=== PATIENT | female | born 1985 | race Caucasian/White ===

== ENCOUNTER 2016-10-24 15:57 | Outpatient (CLI) | payer MEDICAID ==
[2016-10-24 16:31] LABS: ABSOLUTE EOSINOPHILS # (AUTO) 0.1 10^3/uL (0.0-0.6); ABSOLUTE LYMPHOCYTES (AUTO) 2.3 10^3/uL (0.5-4.7); ABSOLUTE MONOCYTES (AUTO) 0.8 10^3/uL (0.1-1.4); ABSOLUTE NEUT (AUTO) 7.6 10^3/uL (1.7-8.2); BASOPHILS % (AUTO) 0.4 % (0-2); EOSINOPHILS % (AUTO) 1.3 % (0-6); HEMATOCRIT 33.2 % (36.0-47.0); HEMOGLOBIN 11.2 g/dL (12.0-15.5); HGB HCT DIFFERENCE 0.4; LYMPHOCYTES % (AUTO) 21.2 % (13-45); MEAN CORPUSCULAR HEMOGLOBIN 26.6 pg (27.0-33.4); MEAN CORPUSCULAR HGB CONC 33.9 g/dL (32.0-36.0); MEAN CORPUSCULAR VOLUME 79 fl (80-97); MONOCYTES % (AUTO) 7.1 % (3-13); RED BLOOD COUNT 4.23 10^6/uL (3.72-5.28); RED CELL DISTRIBUTION WIDTH 13.6 % (11.5-14.0); WHITE BLOOD COUNT 10.9 10^3/uL (4.0-10.5)
[2016-10-24 16:37] LABS: APPEARANCE,URINE CLEAR; BILIRUBIN,URINE NEGATIVE (NEGATIVE); GLUCOSE, URINE NEGATIVE (NEGATIVE); KETONES,URINE NEGATIVE (NEGATIVE); LEUKOCYTE ESTERASE,URINE NEGATIVE (NEGATIVE); NITRITE,URINE NEGATIVE (NEGATIVE); PROTEIN,URINE NEGATIVE (NEGATIVE); URINE SPECIFIC GRAVITY 1.002; UROBILINOGEN,URINE NEGATIVE mg/dL (<2.0)
[2016-10-24 16:40] LABS: ALANINE AMINOTRANSFERASE 20 U/L (9-52); ALBUMIN 3.4 g/dL (3.5-5.0); ALKALINE PHOSPHATASE 184 U/L (38-126); ANION GAP 11 (5-19); ASPARTATE AMINO TRANSFERASE 18 U/L (14-36); BILIRUBIN,TOTAL 0.7 mg/dL (0.2-1.3); BLOOD UREA NITROGEN 6 mg/dL (7-20); CALCIUM 9.6 mg/dL (8.4-10.2); CARBON DIOXIDE 21 mmol/L (22-30); CHLORIDE 103 mmol/L (98-107); CREATININE RESULT 0.66 mg/dL (0.52-1.25); GLUCOSE 64 mg/dL (75-110); LDH 449 U/L (313-618); POTASSIUM 4.4 mmol/L (3.6-5.0); SODIUM 135.1 mmol/L (137-145); TOTAL PROTEIN 6.7 g/dL (6.3-8.2); URIC ACID 4.7 mg/dL (2.5-6.2)
[2016-10-24 16:55] LABS: URINE BARBITURATES SCREEN NEGATIVE; URINE METHADONE SCREEN NEGATIVE; URINE OPIATES LOW NEGATIVE; URINE PHENCYCLIDINE SCREEN NEGATIVE
--- NOTE | 2016-10-24 17:11 | Non Stress Test Report ---
Non Stress Test Datetime Report Generated by CPN: 10/24/2016 17:11 DEMOGRAPHIC EGA NST: 36.1 INDICATION Indication for Study: Other Indication for Study (NST) Other: LC MONITORING Monitor Explained: Monitor Explained; Test Explained; Patient Verbalized Understanding Time on Monitor: 10/24/2016 16:08 Time off Monitor: 10/24/2016 17:06 NST Duration: 58 NST INTERVENTIONS NST Interventions: PO Hydration Physician Notified NST: Dr. Landrum BABY A: [id number] BABY A Movement : Present Contraction Frequency : irreg FHR Baseline : 120 Accelerations : 15X15 Decelerations : None Variability : Moderate 6-25bpm NST Review: Meets Criteria for Reactive NST NST Review and Verified By : KRISTA Hernandez Results: Reactive NST REPORT Report Trigger: Send Report
--- NOTE | 2016-10-24 18:01 | L&D Flow Sheet ---
LD Flowsheet Datetime Report Generated by CPN: 10/24/2016 18:00 Datetime: 10/24/2016 17:49 Comments: monitors discontinued, patient being discharged. Pre-E signs and symptoms reviewed, 24 hr urine instructions reviewed. (Carlaeleonora Ward RN) Datetime: 10/24/2016 17:42 NBP Sys/Maddison/Mean (mmHg): 118 (QS system process) : 85 (QS system process) : 98 (QS system process) Pulse: 80 (QS system process) LaborFlag: Antepartum (QS system process) Datetime: 10/24/2016 17:34 Provider Reviewed Strip: Yes (Carla Ward RN) Communication: Provider Orders Received; Call/Page Placed to Provider (Carla Ward RN) Provider Notified (Name): Dr. Landrum (Carla Ward RN) Notification Reason: Status Update; Status; Labor Status; Uterine Activity; Maternal Vital Sign Change; Lab/Diagnostic Study (Carla Ward RN) Communication Comments: Notified MD of FHTs, CTXs, BPs, and lab results, Received order to discharge patient with pre-e information and 24hr urine collection. (Carla Ward RN) Datetime: 10/24/2016 17:32 NBP Sys/Maddison/Mean (mmHg): 118 (QS system process) : 87 (QS system process) : 99 (QS system process) Pulse: 75 (QS system process) LaborFlag: Antepartum (QS system process) Datetime: 10/24/2016 17:23 NBP Sys/Maddison/Mean (mmHg): 124 (QS system process) : 89 (QS system process) : 102 (QS system process) Pulse: 85 (QS system process) LaborFlag: Antepartum (QS system process) Datetime: 10/24/2016 17:11 NBP Sys/Maddison/Mean (mmHg): 125 (QS system process) : 78 (QS system process) : 98 (QS system process) Pulse: 82 (QS system process) LaborFlag: Antepartum (QS system process) Datetime: 10/24/2016 17:09 NBP Sys/Maddison/Mean (mmHg): 135 (QS system process) : 96 (QS system process) : 111 (QS system process) Pulse: 81 (QS system process) LaborFlag: Antepartum (QS system process) Datetime: 10/24/2016 17:00 Monitor Mode: External (Carla Marlatt, RN) Frequency (min): irreg (Carla Shilatt, RN) Quality: Mild (Carla Marlatt, RN) Duration (sec): 60-80 (Carla Marlatt, RN) Resting Tone (Palpate): Relaxed (Carla Marlatt, RN) Monitor Mode: External US (Carla Lenorelatt, RN) FHR Baseline Rate : 120 (Carla Marlatt, RN) Variability: Moderate 6-25 bpm (Carla Marlatt, RN) Accelerations: 15X15 (Carla Marlatt, RN) Decelerations: None (Carla Marlatt, RN) Datetime: 10/24/2016 16:55 NBP Sys/Maddison/Mean (mmHg): 133 (QS system process) : 89 (QS system process) : 107 (QS system process) Pulse: 78 (QS system process) LaborFlag: Antepartum (QS system process) Datetime: 10/24/2016 16:40 NBP Sys/Maddison/Mean (mmHg): 135 (QS system process) : 99 (QS system process) : 113 (QS system process) Pulse: 87 (QS system process) LaborFlag: Antepartum (QS system process) Datetime: 10/24/2016 16:30 NBP Sys/Maddison/Mean (mmHg): 131 (QS system process) : 85 (QS system process) : 103 (QS system process) Pulse: 83 (QS system process) Monitor Mode: External (Carla Ward RN) Frequency (min): x1 (Carla Ward RN) Quality: Mild (Carla Ward RN) Duration (sec): 60 (Carla Ward RN) Resting Tone (Palpate): Relaxed (Carla Ward RN) Monitor Mode: External US (Carla Marlatt, RN) FHR Baseline Rate : 125 (Carla Marlatt, RN) Variability: Moderate 6-25 bpm (Carla Lenorelatt, RN) Accelerations: 15X15 (Carla Lenorelatt, RN) Decelerations: None (Carla Marlatt, RN) LaborFlag: Antepartum (QS system process) Datetime: 10/24/2016 16:28 Monitor Interventions for FHR: Ultrasound Adjusted (Carla Lenorelatt, RN) Datetime: 10/24/2016 16:14 IV/Blood Work: Labs Drawn (Carla Marlatt, RN) Datetime: 10/24/2016 16:10 Pain Scale: 0 (Carla Ward RN) Pain Presence: None/Denies (Carla Ward RN) Pain Type: N/A (Carla Ward RN) Vaginal Bleeding: None (Carla Ward RN) Level of Consciousness: Fully Conscious (Carla Ward RN) DTR's/Clonus: DTRs 2+; No Clonus (Carla Ward RN) Headache: Denies (Carla Ward RN) Breath Sounds, Left: Clear and Equal (Carla Ward RN) Breath Sounds, Right: Clear and Equal (Carla Ward RN) Nausea/Vomiting: Denies (Carla Ward RN) RUQ Epigastric Pain: Denies (Carla Ward RN) Instructional Method: Demo; Verbal; Patient Instructed; Verbalized Understanding (Carla Ward RN) Plan of Care: Plan of Care Discussed; Gestational Hypertension/Preeclampsia/Eclampsia (Carla Ward RN) Unit Routine: [place] to Room; Call [place]; Bed; Monitoring (Carla Ward RN) LaborFlag: Antepartum (QS system process) Datetime: 10/24/2016 16:09 NBP Sys/Maddison/Mean (mmHg): 113 (QS system process) : 75 (QS system process) : 90 (QS system process) Pulse: 73 (QS system process) LaborFlag: Antepartum (QS system process)
== END 2016-10-24 18:14 | disposition home or self-care (01) ==
LOC: LC 15:57
PROVIDERS: ATTEND Student in an Organized Health Care Education/Training Program
PROC: 4A1HXCZ Monitoring of Products of Conception, Cardiac Rate, External Approach (ICD-10-PCS; principal; 2016-10-24)
DX: O47.03 False labor before 37 completed weeks of gestation, third trimester (principal); O16.3 Unspecified maternal hypertension, third trimester; Z3A.36 36 weeks gestation of pregnancy
CPT/HCPCS: 36415; 59025; 80053; 80307; 81001; 83615; 84550; 85025

== ENCOUNTER 2016-10-28 10:26 | Outpatient (CLI) | payer MEDICAID ==
[2016-10-28 11:11] LABS: ABSOLUTE EOSINOPHILS # (AUTO) 0.1 10^3/uL (0.0-0.6); ABSOLUTE LYMPHOCYTES (AUTO) 1.6 10^3/uL (0.5-4.7); ABSOLUTE MONOCYTES (AUTO) 0.7 10^3/uL (0.1-1.4); ABSOLUTE NEUT (AUTO) 6.8 10^3/uL (1.7-8.2); BASOPHILS % (AUTO) 0.1 % (0-2); EOSINOPHILS % (AUTO) 1.2 % (0-6); HEMOGLOBIN 10.7 g/dL (12.0-15.5); HGB HCT DIFFERENCE 0.1; LYMPHOCYTES % (AUTO) 17.9 % (13-45); MEAN CORPUSCULAR HEMOGLOBIN 26.4 pg (27.0-33.4); MEAN CORPUSCULAR HGB CONC 33.5 g/dL (32.0-36.0); MEAN CORPUSCULAR VOLUME 79 fl (80-97); MONOCYTES % (AUTO) 7.1 % (3-13); RED BLOOD COUNT 4.05 10^6/uL (3.72-5.28); SEGMENTED NEUTROPHILS % (AUTO) 73.7 % (42-78); WHITE BLOOD COUNT 9.2 10^3/uL (4.0-10.5)
[2016-10-28 11:17] LABS: APPEARANCE,URINE CLEAR; BILIRUBIN,URINE NEGATIVE (NEGATIVE); GLUCOSE, URINE NEGATIVE (NEGATIVE); KETONES,URINE NEGATIVE (NEGATIVE); LEUKOCYTE ESTERASE,URINE NEGATIVE (NEGATIVE); NITRITE,URINE NEGATIVE (NEGATIVE); PROTEIN,URINE NEGATIVE (NEGATIVE); URINE SPECIFIC GRAVITY 1.002; UROBILINOGEN,URINE NEGATIVE mg/dL (<2.0)
[2016-10-28 11:30] LABS: ALANINE AMINOTRANSFERASE 22 U/L (9-52); ALBUMIN 3.3 g/dL (3.5-5.0); ALKALINE PHOSPHATASE 170 U/L (38-126); ANION GAP 7 (5-19); ASPARTATE AMINO TRANSFERASE 15 U/L (14-36); BILIRUBIN,TOTAL 0.7 mg/dL (0.2-1.3); BLOOD UREA NITROGEN 5 mg/dL (7-20); CARBON DIOXIDE 20 mmol/L (22-30); CHLORIDE 108 mmol/L (98-107); CREATININE RESULT 0.59 mg/dL (0.52-1.25); GLUCOSE 91 mg/dL (75-110); LDH 390 U/L (313-618); POTASSIUM 4.2 mmol/L (3.6-5.0); TOTAL PROTEIN 6.1 g/dL (6.3-8.2); URIC ACID 4.9 mg/dL (2.5-6.2)
[2016-10-28 11:32] LABS: URINE BARBITURATES SCREEN NEGATIVE; URINE METHADONE SCREEN NEGATIVE; URINE OPIATES LOW NEGATIVE; URINE PHENCYCLIDINE SCREEN NEGATIVE
== END 2016-10-28 11:55 | disposition home or self-care (01) ==
LOC: LC 10:26
PROVIDERS: ATTEND Obstetrics & Gynecology
PROC: 4A1HXCZ Monitoring of Products of Conception, Cardiac Rate, External Approach (ICD-10-PCS; principal; 2016-10-28)
DX: O13.3 Gestational [pregnancy-induced] hypertension without significant proteinuria, third trimester (principal); Z3A.36 36 weeks gestation of pregnancy
CPT/HCPCS: 36415; 59025; 80053; 80307; 81001; 83615; 84550; 85025; 87804

== ENCOUNTER 2016-10-31 11:37 | Outpatient (CLI) | payer MEDICAID ==
--- NOTE | 2016-10-31 11:53 | Non Stress Test Report ---
Non Stress Test Datetime Report Generated by CPN: 10/31/2016 11:52 DEMOGRAPHIC EGA NST: 36.5 INDICATION Indication for Study: Decreased Movement VITAL SIGNS Temperature - NST: 97.3 Pulse - NST: 82 RESP - NST: 18 NBPSYS NST: 123 NBPDIA NST: 76 MONITORING Monitor Explained: Monitor Explained; Test Explained; Patient Verbalized Understanding Time on Monitor: 10/28/2016 10:48 Time off Monitor: 10/28/2016 11:40 NST Duration: 52 NST INTERVENTIONS NST Interventions: Reposition Patient Physician Notified NST: Dr Goyo BABY A Movement : Present Contraction Frequency : 0 FHR Baseline : 120 Accelerations : 15X15 Decelerations : None Variability : Moderate 6-25bpm NST Review: Meets Criteria for Reactive NST NST Review and Verified By : Krissy Laughlin RNC NST Results: Reactive NST REPORT Report Trigger: Send Report
[2016-10-31 12:37] LABS: APPEARANCE,URINE CLEAR; BILIRUBIN,URINE NEGATIVE (NEGATIVE); GLUCOSE, URINE NEGATIVE (NEGATIVE); KETONES,URINE NEGATIVE (NEGATIVE); LEUKOCYTE ESTERASE,URINE NEGATIVE (NEGATIVE); NITRITE,URINE NEGATIVE (NEGATIVE); PROTEIN,URINE NEGATIVE (NEGATIVE); URINE SPECIFIC GRAVITY 1.003; UROBILINOGEN,URINE NEGATIVE mg/dL (<2.0)
[2016-10-31 13:03] LABS: ABSOLUTE EOSINOPHILS # (AUTO) 0.1 10^3/uL (0.0-0.6); ABSOLUTE LYMPHOCYTES (AUTO) 1.7 10^3/uL (0.5-4.7); ABSOLUTE MONOCYTES (AUTO) 0.6 10^3/uL (0.1-1.4); ABSOLUTE NEUT (AUTO) 7.4 10^3/uL (1.7-8.2); BASOPHILS % (AUTO) 0.1 % (0-2); HEMATOCRIT 32.5 % (36.0-47.0); HEMOGLOBIN 10.9 g/dL (12.0-15.5); HGB HCT DIFFERENCE 0.2; LYMPHOCYTES % (AUTO) 17.5 % (13-45); MEAN CORPUSCULAR HEMOGLOBIN 26.4 pg (27.0-33.4); MEAN CORPUSCULAR HGB CONC 33.7 g/dL (32.0-36.0); MEAN CORPUSCULAR VOLUME 78 fl (80-97); MONOCYTES % (AUTO) 5.9 % (3-13); RED BLOOD COUNT 4.14 10^6/uL (3.72-5.28); RED CELL DISTRIBUTION WIDTH 13.8 % (11.5-14.0); SEGMENTED NEUTROPHILS % (AUTO) 75.5 % (42-78); WHITE BLOOD COUNT 9.8 10^3/uL (4.0-10.5)
[2016-10-31 13:03] LABS: URINE BARBITURATES SCREEN NEGATIVE; URINE METHADONE SCREEN NEGATIVE; URINE OPIATES LOW NEGATIVE; URINE PHENCYCLIDINE SCREEN NEGATIVE
[2016-10-31 13:24] LABS: ALANINE AMINOTRANSFERASE 23 U/L (9-52); ALBUMIN 3.5 g/dL (3.5-5.0); ALKALINE PHOSPHATASE 187 U/L (38-126); ANION GAP 10 (5-19); ASPARTATE AMINO TRANSFERASE 18 U/L (14-36); BILIRUBIN,TOTAL 0.7 mg/dL (0.2-1.3); BLOOD UREA NITROGEN 6 mg/dL (7-20); CALCIUM 9.3 mg/dL (8.4-10.2); CARBON DIOXIDE 19 mmol/L (22-30); CHLORIDE 107 mmol/L (98-107); CREATININE RESULT 0.62 mg/dL (0.52-1.25); GLUCOSE 63 mg/dL (75-110); LDH 458 U/L (313-618); POTASSIUM 4.5 mmol/L (3.6-5.0); SODIUM 136.2 mmol/L (137-145); TOTAL PROTEIN 6.4 g/dL (6.3-8.2); URIC ACID 5.1 mg/dL (2.5-6.2)
--- NOTE | 2016-10-31 13:41 | Non Stress Test Report ---
Non Stress Test Datetime Report Generated by CPN: 10/31/2016 13:41 DEMOGRAPHIC EGA NST: 37.1 INDICATION Indication for Study: Other Indication for Study (NST) Other: LC MONITORING Monitor Explained: Monitor Explained; Test Explained; Patient Verbalized Understanding Time on Monitor: 10/31/2016 12:13 Time off Monitor: 10/31/2016 13:13 NST Duration: 60 NST INTERVENTIONS NST Interventions: PO Hydration Physician Notified NST: Dr. Landrum BABY A Movement : Present Contraction Frequency : irreg FHR Baseline : 120 Accelerations : 15X15 Decelerations : None Variability : Moderate 6-25bpm NST Review: Meets Criteria for Reactive NST NST Review and Verified By : NAWAF POLK RN NST Results: Reactive NST REPORT Report Trigger: Send Report
--- NOTE | 2016-10-31 14:00 | L&D Flow Sheet ---
LD Flowsheet Datetime Report Generated by CPN: 10/31/2016 14:00 Datetime: 10/31/2016 13:39 NBP Sys/Maddison/Mean (mmHg): 130 (QS system process) : 88 (QS system process) : 103 (QS system process) Pulse: 93 (QS system process) LaborFlag: Antepartum (QS system process) Datetime: 10/31/2016 13:30 Monitor Mode: External (Carlaeleonora Ward, RN) Frequency (min): irreg (Carla Marlatt, RN) Quality: Mild (Carla Marlatt, RN) Duration (sec): 60-100 (Carla Marlatt, RN) Resting Tone (Palpate): Relaxed (Carla Marlatt, RN) Monitor Mode: External US (Carla Marlatt, RN) FHR Baseline Rate : 120 (Carla Marlatt, RN) Variability: Moderate 6-25 bpm (Carla Marlatt, RN) Accelerations: 15X15 (Carla Marlatt, RN) Decelerations: None (Carla Marlatt, RN) Datetime: 10/31/2016 13:24 NBP Sys/Maddison/Mean (mmHg): 122 (QS system process) : 87 (QS system process) : 101 (QS system process) Pulse: 96 (QS system process) LaborFlag: Antepartum (QS system process) Datetime: 10/31/2016 13:08 NBP Sys/Maddison/Mean (mmHg): 117 (QS system process) : 78 (QS system process) : 93 (QS system process) Pulse: 86 (QS system process) LaborFlag: Antepartum (QS system process) Datetime: 10/31/2016 13:00 Monitor Mode: External (Carla Marlatt, RN) Frequency (min): irreg (Carla Marlatt, RN) Quality: Mild (Carla Marlatt, RN) Duration (sec): 90-110 (Carla Marlatt, RN) Resting Tone (Palpate): Relaxed (Carla Marlatt, RN) Monitor Mode: External US (Carla Marlatt, RN) FHR Baseline Rate : 120 (Carla Marlatt, RN) Variability: Moderate 6-25 bpm (Carla Marlatt, RN) Accelerations: 15X15 (Carla Marlatt, RN) Decelerations: None (Carla Marlatt, RN) Datetime: 10/31/2016 12:53 NBP Sys/Maddison/Mean (mmHg): 112 (QS system process) : 84 (QS system process) : 95 (QS system process) Pulse: 84 (QS system process) LaborFlag: Antepartum (QS system process) Datetime: 10/31/2016 12:38 NBP Sys/Maddison/Mean (mmHg): 116 (QS system process) : 84 (QS system process) : 96 (QS system process) Pulse: 83 (QS system process) LaborFlag: Antepartum (QS system process) Datetime: 10/31/2016 12:30 Monitor Mode: External; Palpation (Carla Ward, RN) Frequency (min): 0 (Carlamark Fuchstt, RN) Resting Tone (Palpate): Relaxed (Carlamark Groverlatt, RN) Monitor Mode: External US (Carla Ward, RN) FHR Baseline Rate : 120 (Carla Fuchstt, RN) Variability: Moderate 6-25 bpm (Carla Lenorelatt, RN) Accelerations: 15X15 (Carla Lenorelatt, RN) Decelerations: None (Carla Lenorelatt, RN) Datetime: 10/31/2016 12:23 NBP Sys/Maddison/Mean (mmHg): 122 (QS system process) : 83 (QS system process) : 98 (QS system process) Pulse: 88 (QS system process) LaborFlag: Antepartum (QS system process) Datetime: 10/31/2016 12:10 Pain Scale: 0 (Carla Ward RN) Pain Presence: None/Denies (Carla Ward RN) Pain Type: N/A (Carla Ward RN) Vaginal Bleeding: None (Carla Ward RN) Level of Consciousness: Fully Conscious (Carla Ward RN) DTR's/Clonus: DTRs 2+; No Clonus (Carla Ward RN) Headache: Denies (Carla Ward RN) Breath Sounds, Left: Clear and Equal (Carla Ward RN) Breath Sounds, Right: Clear and Equal (Carla Ward RN) Nausea/Vomiting: Denies (Carla Ward RN) RUQ Epigastric Pain: Denies (Carla Ward RN) Instructional Method: Demo; Verbal (Carla Ward RN) Plan of Care: Plan of Care Discussed (Carla Ward RN) Unit Routine: [place] to Room; Call [place]; Bed; Monitoring (Carla Ward RN) LaborFlag: Antepartum (QS system process) Datetime: 10/31/2016 12:08 NBP Sys/Maddison/Mean (mmHg): 133 (QS system process) : 86 (QS system process) : 105 (QS system process) Pulse: 88 (QS system process) LaborFlag: Antepartum (QS system process)
== END 2016-10-31 14:08 | disposition home or self-care (01) ==
LOC: LC 11:37
PROVIDERS: ATTEND Student in an Organized Health Care Education/Training Program
PROC: 4A1HXCZ Monitoring of Products of Conception, Cardiac Rate, External Approach (ICD-10-PCS; principal; 2016-10-31)
DX: O36.8130 Decreased fetal movements, third trimester, not applicable or unspecified (principal); O13.3 Gestational [pregnancy-induced] hypertension without significant proteinuria, third trimester; Z3A.36 36 weeks gestation of pregnancy
CPT/HCPCS: 36415; 59025; 80053; 80307; 81001; 83615; 84550; 85025; 86592; 86850; 86900; 86901

== ENCOUNTER 2016-11-02 20:18 | Inpatient (IN) | payer MEDICAID ==
[2016-11-02] MEDS ORDERED: RINGERS SOLUTION,LACTATED 1,000 ML IV PRN (20:40)
[2016-11-02] MEDS ORDERED: MAG HYDROX/AL HYDROX/SIMETH SUSP 30 ML UDCUP PO PRN (20:40)
[2016-11-02] MEDS ORDERED: RINGERS SOLUTION,LACTATED 300 ML IV ONE (20:40)
[2016-11-02] MEDS ORDERED: DINOPROSTONE 10 MG VAGINAL INSERT.SR PV ONE (20:40)
[2016-11-02] MEDS ORDERED: ZOLPIDEM TARTRATE 5 MG TABLET PO PRN (20:40)
[2016-11-02] MEDS ORDERED: ACETAMINOPHEN 325 MG TABLET PO PRN (20:40)
[2016-11-02] MEDS ORDERED: DINOPROSTONE 10 MG VAGINAL INSERT.SR ONE (21:36)
[2016-11-02 21:37] LABS: APPEARANCE,URINE CLEAR; BILIRUBIN,URINE NEGATIVE (NEGATIVE); GLUCOSE, URINE NEGATIVE (NEGATIVE); KETONES,URINE NEGATIVE (NEGATIVE); LEUKOCYTE ESTERASE,URINE NEGATIVE (NEGATIVE); NITRITE,URINE NEGATIVE (NEGATIVE); PROTEIN,URINE NEGATIVE (NEGATIVE); URINE SPECIFIC GRAVITY 1.005; UROBILINOGEN,URINE NEGATIVE mg/dL (<2.0)
[2016-11-02 21:46] LABS: ABSOLUTE EOSINOPHILS # (AUTO) 0.2 10^3/uL (0.0-0.6); ABSOLUTE LYMPHOCYTES (AUTO) 1.9 10^3/uL (0.5-4.7); ABSOLUTE MONOCYTES (AUTO) 0.7 10^3/uL (0.1-1.4); ABSOLUTE NEUT (AUTO) 5.7 10^3/uL (1.7-8.2); BASOPHILS % (AUTO) 0.2 % (0-2); EOSINOPHILS % (AUTO) 2.1 % (0-6); HEMATOCRIT 30.6 % (36.0-47.0); HEMOGLOBIN 10.4 g/dL (12.0-15.5); HGB HCT DIFFERENCE 0.6; LYMPHOCYTES % (AUTO) 22.6 % (13-45); MEAN CORPUSCULAR HEMOGLOBIN 26.4 pg (27.0-33.4); MEAN CORPUSCULAR HGB CONC 33.9 g/dL (32.0-36.0); MEAN CORPUSCULAR VOLUME 78 fl (80-97); MONOCYTES % (AUTO) 8.2 % (3-13); RED BLOOD COUNT 3.93 10^6/uL (3.72-5.28); RED CELL DISTRIBUTION WIDTH 14.2 % (11.5-14.0); SEGMENTED NEUTROPHILS % (AUTO) 66.9 % (42-78); WHITE BLOOD COUNT 8.5 10^3/uL (4.0-10.5)
[2016-11-02 21:56] LABS: URINE BARBITURATES SCREEN NEGATIVE; URINE METHADONE SCREEN NEGATIVE; URINE OPIATES LOW NEGATIVE; URINE PHENCYCLIDINE SCREEN NEGATIVE
--- NOTE | 2016-11-02 22:00 | L&D Flow Sheet ---
LD Flowsheet Datetime Report Generated by CPN: 11/02/2016 22:00 Datetime: 11/02/2016 21:54 NBP Sys/Maddison/Mean (mmHg): 117 (QS system process) : 78 (QS system process) : 93 (QS system process) Pulse: 90 (QS system process) LaborFlag: Antepartum (QS system process) Datetime: 11/02/2016 21:47 NBP Sys/Maddison/Mean (mmHg): 132 (QS system process) : 85 (QS system process) : 103 (QS system process) Pulse: 79 (QS system process) LaborFlag: Antepartum (QS system process) Datetime: 11/02/2016 21:43 Cervical Ripening Agents: Cervidil (Crystal Gaston, RN) Datetime: 11/02/2016 21:41 Exam by: Deidra Feldman RN (Crystal Gaston, RN) Vaginal Bleeding: None (Crystal Gaston, RN) Cervix, Consistency: Moderate (Crystal Gaston, RN) Cervix, Position: Posterior (Crystal Gaston, RN) Vaginal Exam Comments: Ft, thick, high (Crystal Gaston, RN) Datetime: 11/02/2016 21:32 IV/Blood Work: IV Started; IV Bolus Started (Crystal Gaston, RN) Patient Care Comments: 18 G Right FA (Crystal Gaston, RN) Datetime: 11/02/2016 21:23 NBP Sys/Maddison/Mean (mmHg): 129 (QS system process) : 90 (QS system process) : 105 (QS system process) Pulse: 93 (QS system process) LaborFlag: Antepartum (QS system process) Datetime: 11/02/2016 21:09 NBP Sys/Maddison/Mean (mmHg): 130 (QS system process) : 90 (QS system process) : 105 (QS system process) Pulse: 86 (QS system process) LaborFlag: Antepartum (QS system process) Datetime: 11/02/2016 20:53 NBP Sys/Maddison/Mean (mmHg): 133 (QS system process) : 81 (QS system process) : 103 (QS system process) Pulse: 87 (QS system process) LaborFlag: Antepartum (QS system process) Datetime: 11/02/2016 20:46 Pain Scale: 0 (Shantel Tovar RN) Vaginal Bleeding: None (Shantel Tovar RN) Level of Consciousness: Fully Conscious (Shantel Tovar RN) DTR's/Clonus: DTRs 2+; No Clonus (Shantel Tovar RN) Headache: Denies (Shantel Tovar RN) Breath Sounds, Left: Clear and Equal (Shantel Tovar RN) Breath Sounds, Right: Clear and Equal (Shantel Tovar RN) RUQ Epigastric Pain: Denies (Shantel Tovar RN) Instructional Method: Demo; Verbal; Patient Instructed (Shantel Tovar RN) Plan of Care: Plan of Care Discussed; Vaginal Delivery; Induction (Shantel Tovar RN) Unit Routine: [place] to Room; Call [place]lam[place]; Bed; Visiting Policy; Handwashing; Monitoring; Safety/Fall Risk Prevention (Shantel Tovar RN) LaborFlag: Antepartum (QS system process)
[2016-11-02] MEDS ORDERED: ZOLPIDEM TARTRATE 5 MG TABLET ONE (23:30)
[2016-11-03] MEDS ORDERED: ONDANSETRON 4 MG TAB.RAPDIS ONE (00:34)
[2016-11-03] MEDS ORDERED: ONDANSETRON 4 MG TAB.RAPDIS PO ONE (01:00)
[2016-11-03] MEDS ORDERED: PENICILLIN G-K 5 MILLION UNIT VIAL ONE ×2 (03:30→09:06)
[2016-11-03] MEDS ORDERED: PENICILLIN G POTASSIUM 5,000,000 UNIT in DEXTROSE 5%-WATER 100 ML IV ONE (03:30)
[2016-11-03] MEDS ORDERED: PROMETHAZINE HCL INJ 25 MG/1 ML VIAL ONE (04:20)
[2016-11-03] MEDS ORDERED: NALBUPHINE HCL INJ 10 MG/1 ML AMPULE ONE (04:20)
[2016-11-03] MEDS ORDERED: NALBUPHINE HCL INJ 10 MG/1 ML AMPULE INJ ONE (04:30)
[2016-11-03] MEDS ORDERED: PROMETHAZINE HCL INJ 25 MG/1 ML VIAL IV ONE (04:30)
[2016-11-03] MEDS ORDERED: PENICILLIN G POTASSIUM 2,500,000 UNIT in DEXTROSE 5%-WATER 50 ML IV SCH (07:30)
[2016-11-03] MEDS ORDERED: PENICILLIN G-K 5 MILLION UNIT VIAL IV SCH (08:00)
--- NOTE | 2016-11-03 08:01 | L&D Flow Sheet ---
LD Flowsheet Datetime Report Generated by CPN: 11/03/2016 08:00 Datetime: 11/03/2016 07:44 Monitor Mode: External (January Margarito, RN) Frequency (min): 2-3 (January Margarito, RN) Quality: Mild (January Margarito, RN) Duration (sec): 60-80 (January Margarito, RN) Resting Tone (Palpate): Relaxed (January Margarito, RN) Monitor Mode: External US (January Margarito, RN) FHR Baseline Rate : 120 (Jaunary Margarito, RN) Variability: Moderate 6-25 bpm (January Margarito, RN) Accelerations: 15X15 (January Margarito, RN) Decelerations: None (January Margarito, RN) Communication Comments: monitors disconnected for pt to eat, shower and ambulate (January Margarito, RN) Datetime: 11/03/2016 07:43 Medication Comments: cervidil removed (January Margarito, RN) Datetime: 11/03/2016 07:34 Communication Comments: Dr. Haynes on unit, FHR strip reviewed by Order recieved to pull Cervidil now and let pt have hour off monitor (January Margarito, RN) Datetime: 11/03/2016 07:30 Monitor Mode: External; Palpation (January Margarito, RN) Frequency (min): 2-6 (January Margarito, RN) Quality: Mild (January Margarito, RN) Duration (sec): 40-80 (January Margarito, RN) Resting Tone (Palpate): Relaxed (January Margarito, RN) Monitor Mode: External US (January Margarito, RN) FHR Baseline Rate : 120 (January Margarito, RN) Variability: Moderate 6-25 bpm (January Margarito, RN) Accelerations: 15X15 (January Margarito, RN) Decelerations: None (January Margarito, RN) Datetime: 11/03/2016 07:28 Patient Position/Activity: Semi-Fowlers (January Margarito, RN) Datetime: 11/03/2016 07:26 Communication: RN at Bedside (January Margarito, RN) Datetime: 11/03/2016 07:17 NBP Sys/Maddison/Mean (mmHg): 117 (QS system process) : 91 (QS system process) : 100 (QS system process) Pulse: 102 (QS system process) LaborFlag: Antepartum (QS system process) Datetime: 11/03/2016 07:15 Communication: Report Given to @ A Margarito RN (Shantel Tovar, RN) Datetime: 11/03/2016 07:00 Monitor Mode: External; Palpation (Shantel Ledgerwood, RN) Frequency (min): 1.5-3.5 (Shantel Ledgerwood, RN) Quality: Mild/Moderate (Shantel Ledgerwood, RN) Duration (sec): 50-70 (Shantel Ledgerwood, RN) Duration Criteria: Less than Two 120 Second Contractions (Shantel Ledgerwood, RN) Pattern: Normal: <= 5 Contractions in 10 Minutes (Shantel Ledgerwood, RN) Resting Tone (Palpate): Relaxed (Shantel Rishabhgerwood, RN) Monitor Mode: External US (Shantel Ledgerwood, RN) FHR Baseline Rate : 115 (Shantel Ledgerwood, RN) FHR Baseline Changes: No Baseline Change (Shantel Ledgerwood, RN) Variability: Moderate 6-25 bpm (Shantel Ledgerwood, RN) Accelerations: 10X10 (Shantel [place]ger[place], RN) Decelerations: None (Shantel [place]ger[place], RN) Datetime: 11/03/2016 06:30 Monitor Mode: External; Palpation (Shantel Ledgerwood, RN) Frequency (min): 1.5-3 (Shantel [place]ger[place], RN) Quality: Mild/Moderate (Shantel [place]ger[place], RN) Duration (sec): 50-70 (Shantel [place], RN) Duration Criteria: Less than Two 120 Second Contractions (Shantel [place]ger[place], RN) Pattern: Normal: <= 5 Contractions in 10 Minutes (Shantel [place]gerwood, RN) Resting Tone (Palpate): Relaxed (Shantel Ledger[place], RN) Monitor Mode: External US (Shantel [place]ger[place], RN) FHR Baseline Rate : 125 (Shantel Ledgerwood, RN) FHR Baseline Changes: No Baseline Change (Shantel [place], RN) Variability: Moderate 6-25 bpm (Shantel [place]ger[place], RN) Accelerations: 10X10 (Shantel [place]ger[place], RN) Decelerations: None (Shantel Ledgerwood, RN) Datetime: 11/03/2016 06:00 Monitor Mode: External; Palpation (Shantel [place]ger[place], RN) Frequency (min): 1.5-2.5 (Shantel Ledgerwood, RN) Quality: Mild/Moderate (Shantel Ledger[place], RN) Duration (sec): 40-90 (Shantel Ledgerwood, RN) Duration Criteria: Less than Two 120 Second Contractions (Shantel Ledgerwood, RN) Pattern: Normal: <= 5 Contractions in 10 Minutes (Shantel Ledgerwood, RN) Resting Tone (Palpate): Relaxed (Shantel Ledgerwood, RN) Monitor Mode: External US (Shantel Ledgerwood, RN) FHR Baseline Rate : 120 (Shantel Ledgerwood, RN) FHR Baseline Changes: No Baseline Change (Shantel Ledgerwood, RN) Variability: Moderate 6-25 bpm (Shantel Ledgerwood, RN) Accelerations: None (Shantel Ledgerwood, RN) Decelerations: None (Shantel Ledgerwood, RN) Datetime: 11/03/2016 05:30 Monitor Mode: External; Palpation (Shantel Ledgerwood, RN) Frequency (min): 1.5-2.5 (Shantel [place], RN) Quality: Mild/Moderate (Shantel [place], RN) Duration (sec): 60-70 (Shantel Ledgerwood, RN) Duration Criteria: Less than Two 120 Second Contractions (Shantel Ledgerwood, RN) Pattern: Normal: <= 5 Contractions in 10 Minutes (Shantel [place]gerwood, RN) Resting Tone (Palpate): Relaxed (Shantel Ledgerwood, RN) Monitor Mode: External US (Shantel Ledgerwood, RN) FHR Baseline Rate : 125 (Shantel Ledgerwood, RN) FHR Baseline Changes: No Baseline Change (Shantel Ledgerwood, RN) Variability: Moderate 6-25 bpm (Shantel Ledgerwood, RN) Accelerations: None (Shantel Ledgerwood, RN) Decelerations: None (Shantel Ledgerwood, RN) Datetime: 11/03/2016 05:00 Monitor Mode: External; Palpation (Shantel Ledgerwood, RN) Frequency (min): 1.5-2.5 (Shantel Ledgerwood, RN) Quality: Mild/Moderate (Shantel Ledgerwood, RN) Duration (sec): 50-60 (Shantel Ledgerwood, RN) Duration Criteria: Less than Two 120 Second Contractions (Shantel Ledgerwood, RN) Pattern: Normal: <= 5 Contractions in 10 Minutes (Shantel Ledgerwood, RN) Resting Tone (Palpate): Relaxed (Shantel Ledgerwood, RN) Monitor Mode: External US (Shantel Ledgerwood, RN) FHR Baseline Rate : 125 (Shantel Ledgerwood, RN) FHR Baseline Changes: No Baseline Change (Shantel Ledgerwood, RN) Variability: Moderate 6-25 bpm (Shantel Ledgerwood, RN) Accelerations: None (Shantel Ledgerwood, RN) Decelerations: None (Shantel Ledgerwood, RN) Datetime: 11/03/2016 04:30 Monitor Mode: External; Palpation (Shantel Ledgerwood, RN) Frequency (min): 1.5-3.5 (Shantel Ledgerwood, RN) Quality: Mild/Moderate (Shantel [place]ger[place], RN) Duration (sec): 50-60 (Shantel Ledgerwood, RN) Duration Criteria: Less than Two 120 Second Contractions (Shantel Ledgerwood, RN) Pattern: Normal: <= 5 Contractions in 10 Minutes (Shantel Ledgerwood, RN) Resting Tone (Palpate): Relaxed (Shantel Ledgerwood, RN) Monitor Mode: External US (Shantel Ledgerwood, RN) FHR Baseline Rate : 125 (Shantel Ledgerwood, RN) FHR Baseline Changes: No Baseline Change (Shantel Ledgerwood, RN) Variability: Moderate 6-25 bpm (Shantel Ledgerwood, RN) Accelerations: 10X10 (Shantel Ledgerwood, RN) Decelerations: None (Shantel Ledgerwood, RN) Datetime: 11/03/2016 04:28 Analgesics/Sedatives: Nubain (mg) @ 10; Phenergan (mg) @ 12.5 (Shantel Tovar RN) Datetime: 11/03/2016 04:14 Communication: Provider Orders Received; Call/Page Placed to Provider (Shantel Tovar RN) Communication Comments: Dr Parra was notified of pt's pain 4 out 5 during contractions and request for pain medication. Order for Nubain and Phenergan received. (Shantel Tovar RN) Datetime: 11/03/2016 04:01 Pain Scale: 4 (Shantel Tovar RN) Pain Presence: Intermittent (Shantel Tovar RN) Pain Type: Contraction (Shantel Tovar RN) Pain Location: Abdomen (Shantel Tovar RN) Pain Assessment Comments: pt requests pain medicatioin. (Shantel Tovar RN) LaborFlag: Antepartum (QS system process) Datetime: 11/03/2016 04:00 Monitor Mode: External; Palpation (Shantel [place], RN) Frequency (min): 1.5-2.5 (Shantel [place]ger[place], RN) Quality: Mild/Moderate (Shantel [place]ger[place], RN) Duration (sec): 50-60 (Shantel Ledgerwood, RN) Duration Criteria: Less than Two 120 Second Contractions (Shantel Ledgerwood, RN) Pattern: Normal: <= 5 Contractions in 10 Minutes (Shantel [place]ger[place], RN) Resting Tone (Palpate): Relaxed (Shantel Ledgerwood, RN) Monitor Mode: External US (Shantel Ledgerwood, RN) FHR Baseline Rate : 125 (Shantel Ledgerwood, RN) FHR Baseline Changes: No Baseline Change (Shantel Ledgerwood, RN) Variability: Moderate 6-25 bpm (Shantel Ledgerwood, RN) Accelerations: 15X15 (Shantel Ledgerwood, RN) Decelerations: None (Shantel [place]ger[place], RN) Datetime: 11/03/2016 03:35 Antibiotics: Penicillin IV (Units) @ [id number] (Shantel Ledgerwood, RN) Datetime: 11/03/2016 03:30 Monitor Mode: External; Palpation (Shantel [place]ger[place], RN) Frequency (min): 2-3 (Shantel Ledgerwood, RN) Quality: Mild/Moderate (Shantel Ledgerwood, RN) Duration (sec): 50-90 (Shantel Ledgerwood, RN) Duration Criteria: Less than Two 120 Second Contractions (Shantel Ledgerwood, RN) Pattern: Normal: <= 5 Contractions in 10 Minutes (Shantel Ledgerwood, RN) Resting Tone (Palpate): Relaxed (Shantel Ledgerwood, RN) Monitor Mode: External US (Shantel Ledgerwood, RN) FHR Baseline Rate : 125 (Shantel Ledgerwood, RN) FHR Baseline Changes: No Baseline Change (Shantel Ledgerwood, RN) Variability: Moderate 6-25 bpm (Shantel Ledgerwood, RN) Accelerations: 10X10 (Shantel Ledgerwood, RN) Decelerations: None (Shantel Ledgerwood, RN) Datetime: 11/03/2016 03:18 Dilatation (cm): 2.5 (Shantel Ledgerwood, RN) Effacement (%): 60 (Shantel Ledgerwood, RN) Station: -2 (Shantel Ledgerwood, RN) Exam by: Poonam Tovar RN (Shantel Tovar, RN) Datetime: 11/03/2016 03:05 Patient Care Comments: pt. vomited. (Shantel Tovar, RN) Datetime: 11/03/2016 03:00 Monitor Mode: External; Palpation (Shantel Tovar, RN) Frequency (min): 2.5-3.5 (Shantel Tovar, RN) Quality: Mild/Moderate (Shantel Tovar, RN) Duration (sec): 80-110 (Shantel Tovar, RN) Duration Criteria: Less than Two 120 Second Contractions (Shantel Tovar, RN) Pattern: Normal: <= 5 Contractions in 10 Minutes (Shantel Tovar, RN) Resting Tone (Palpate): Relaxed (Shantel Tovar, RN) Monitor Mode: External US (Shantel Tovar, RN) FHR Baseline Rate : 125 (Shantel Tovar, RN) FHR Baseline Changes: No Baseline Change (Shantel Tovar, RN) Variability: Moderate 6-25 bpm (Shantel Ledgerwood, RN) Accelerations: 15X15 (Shantel Ledgerwood, RN) Decelerations: None (Shantel Ledgerwood, RN) Datetime: 11/03/2016 02:30 Monitor Mode: External; Palpation (Shantel Ledgerwood, RN) Frequency (min): 2.5-3.5 (Shantel Ledgerwood, RN) Quality: Mild/Moderate (Shantel [place]gerwood, RN) Duration (sec): 60-80 (Shantel Ledgerwood, RN) Duration Criteria: Less than Two 120 Second Contractions (Shantel Ledgerwood, RN) Pattern: Normal: <= 5 Contractions in 10 Minutes (Shantel Ledgerwood, RN) Resting Tone (Palpate): Relaxed (Shantel Ledgerwood, RN) Monitor Mode: External US (Shantel Ledgerwood, RN) FHR Baseline Rate : 125 (Shantel Ledgerwood, RN) FHR Baseline Changes: No Baseline Change (Shantel Ledgerwood, RN) Variability: Moderate 6-25 bpm (Shantel Ledgerwood, RN) Accelerations: 15X15 (Shantel Ledgerwood, RN) Decelerations: None (Shantel Ledgerwood, RN) Datetime: 11/03/2016 02:00 Monitor Mode: External; Palpation (Shantel Ledgerwood, RN) Frequency (min): 3.5-4.5 (Shantel Ledgerwood, RN) Quality: Mild (Shantel Ledgerwood, RN) Duration (sec): 60-80 (Shantel Ledgerwood, RN) Duration Criteria: Less than Two 120 Second Contractions (Shantel Ledgerwood, RN) Pattern: Normal: <= 5 Contractions in 10 Minutes (Shantel Ledgerwood, RN) Resting Tone (Palpate): Relaxed (Shantel Ledgerwood, RN) Monitor Mode: External US (Shantel Ledgerwood, RN) FHR Baseline Rate : 115 (Shantel Ledgerwood, RN) FHR Baseline Changes: No Baseline Change (Shantel Ledgerwood, RN) Variability: Moderate 6-25 bpm (Shantel Ledgerwood, RN) Accelerations: 15X15 (Shantel Ledgerwood, RN) Decelerations: None (Shantel Ledgerwood, RN) Datetime: 11/03/2016 01:57 NBP Sys/Maddison/Mean (mmHg): 120 (QS system process) : 79 (QS system process) : 95 (QS system process) Pulse: 107 (QS system process) LaborFlag: Antepartum (QS system process) Datetime: 11/03/2016 01:50 IV/Blood Work: New IV Bag Hung (Shantel Ledgerwood, RN) Datetime: 11/03/2016 01:42 Patient Position/Activity: Left Tilt (Shantel Ledgerwood, RN) Datetime: 11/03/2016 01:30 Monitor Mode: External; Palpation (Shantel Ledgerwood, RN) Frequency (min): 3.5-5 (Shantel Ledgerwood, RN) Quality: Mild (Shantel Ledgerwood, RN) Duration (sec): 90-110 (Shantel Ledgerwood, RN) Pattern: Normal: <= 5 Contractions in 10 Minutes (Shantel Ledgerwood, RN) Resting Tone (Palpate): Relaxed (Shantel Ledgerwood, RN) Monitor Mode: External US (Shantel Rishabhgerwood, RN) FHR Baseline Rate : 115 (Shantel Ledgerwood, RN) FHR Baseline Changes: No Baseline Change (Shantel Ledgerwood, RN) Variability: Moderate 6-25 bpm (Shantel Ledgerwood, RN) Accelerations: 15X15 (Shantel Ledgerwood, RN) Decelerations: None (Shantel Ledgerwood, RN) Datetime: 11/03/2016 01:00 Monitor Mode: External; Palpation (Shantel Ledgerwood, RN) Frequency (min): 4-8.5 (Shantel Ledgerwood, RN) Quality: Mild (Shantel Ledgerwood, RN) Duration (sec): 70-140 (Shantel Ledgerwood, RN) Pattern: Normal: <= 5 Contractions in 10 Minutes (Shantel Ledgerwood, RN) Resting Tone (Palpate): Relaxed (Shantel Ledgerwood, RN) Monitor Mode: External US (Shantel Ledgerwood, RN) FHR Baseline Rate : 115 (Shantel Ledgerwood, RN) FHR Baseline Changes: No Baseline Change (Shantel Ledgerwood, RN) Variability: Moderate 6-25 bpm (Shantel Ledgerwood, RN) Accelerations: 15X15 (Shantel Ledgerwood, RN) Decelerations: None (Shantel Ledgerwood, RN) Datetime: 11/03/2016 00:57 NBP Sys/Maddison/Mean (mmHg): 112 (QS system process) : 82 (QS system process) : 94 (QS system process) Pulse: 88 (QS system process) LaborFlag: Antepartum (QS system process) Datetime: 11/03/2016 00:37 Antiemetics/Antacids: Zofran ODT (mg) @ 4 (Shantel Ledgerwood, RN) Datetime: 11/03/2016 00:30 Monitor Mode: External; Palpation (Shantel Ledgerwood, RN) Frequency (min): 4.5-8 (Shantel Ledgerwood, RN) Quality: Mild (Shantel Ledgerwood, RN) Duration (sec): 90-130 (Shantel Ledgerwood, RN) Pattern: Normal: <= 5 Contractions in 10 Minutes (Shantel Ledgerwood, RN) Resting Tone (Palpate): Relaxed (Shantel Ledgerwood, RN) Monitor Mode: External US (Shantel Ledgerwood, RN) FHR Baseline Rate : 115 (Shantel Ledgerwood, RN) FHR Baseline Changes: No Baseline Change (Shantel Ledgerwood, RN) Variability: Moderate 6-25 bpm (Shantel Ledgerwood, RN) Accelerations: 15X15 (Shantel Ledgerwood, RN) Decelerations: None (Shantel Rishabhgerdionna, RN) Patient Care Comments: Pt c/o feeling very nauseous. States has felt that way for awhile. (Kristi Adams, KRISTA) Communication Comments: Dr. Parra notified of pt's c/o. Order received for 4 mg Zoftan ODT. (Kristi Adams, KRISTA) Datetime: 11/03/2016 00:00 Monitor Mode: External; Palpation (Shantel Tovar, RN) Frequency (min): 2.5-4 (Shantel Rishabhgerdionna, RN) Quality: Mild (Shantel Ledgerwood, RN) Duration (sec): 80-90 (Shantel Ledgerwood, RN) Duration Criteria: Less than Two 120 Second Contractions (Shantel Ledgerwood, RN) Pattern: Normal: <= 5 Contractions in 10 Minutes (Shantel Ledgerwood, RN) Resting Tone (Palpate): Relaxed (Shantel Ledgerwood, RN) Monitor Mode: External US (Shantel Ledgerdionna, RN) FHR Baseline Rate : 115 (Shantel Ledgerwood, RN) FHR Baseline Changes: No Baseline Change (Shantel Ledgerwood, RN) Variability: Moderate 6-25 bpm (Shantel Ledgerwood, RN) Accelerations: 15X15 (Shantel Ledgerwood, RN) Decelerations: None (Shantel Ledgerwood, RN) Datetime: 11/02/2016 23:58 NBP Sys/Maddison/Mean (mmHg): 121 (QS system process) : 79 (QS system process) : 95 (QS system process) Pulse: 85 (QS system process) Respirations: 16 (Shantel Ledgerwood, RN) LaborFlag: Antepartum (QS system process) Datetime: 11/02/2016 23:47 Analgesics/Sedatives: Ambien (mg) @ 10 (Shantel Ledgerwood, RN) Datetime: 11/02/2016 23:30 Monitor Mode: External; Palpation (Shantel Ledgerwood, RN) Frequency (min): 4.5-8 (Shantel Ledgerwood, RN) Quality: Mild (Shantel Ledgerwood, RN) Duration (sec): 90-110 (Shantel Ledgerwood, RN) Duration Criteria: Less than Two 120 Second Contractions (Shantel Ledgerwood, RN) Pattern: Normal: <= 5 Contractions in 10 Minutes (Shantel Ledgerwood, RN) Resting Tone (Palpate): Relaxed (Shantel Ledgerwood, RN) Monitor Mode: External US (Shantel Ledgerwood, RN) FHR Baseline Rate : 120 (Shantel Ledgerwood, RN) FHR Baseline Changes: No Baseline Change (Shantel Ledgerwood, RN) Variability: Moderate 6-25 bpm (Shantel Ledgerwood, RN) Accelerations: 15X15 (Shantel Ledgerwood, RN) Decelerations: None (Shantel Ledgerwood, RN) Datetime: 11/02/2016 23:15 Monitor Mode: External; Palpation (Crystal [place], RN) Frequency (min): 0 ([place], RN) Resting Tone (Palpate): Relaxed ([place], RN) Monitor Mode: External US ([place], RN) FHR Baseline Rate : 120 (C[place], RN) Variability: Moderate 6-25 bpm (Crystal [place], RN) Accelerations: Prolonged (C[place], RN) Decelerations: None (Crystal [place]aston, RN) Datetime: 11/02/2016 22:46 Monitor Mode: External; Palpation (C[place], RN) Frequency (min): 0 (C[place], RN) Resting Tone (Palpate): Relaxed (C[place], RN) Monitor Mode: External US (C[place], RN) FHR Baseline Rate : 120 (Crystal Gaston, RN) Variability: Moderate 6-25 bpm (C[place], RN) Accelerations: 15X15 (Crystal Gaston, RN) Decelerations: None (Crystal [place], RN) Patient Position/Activity: Right Lateral; Semi-Fowlers (Crystal [place], RN) Datetime: 11/02/2016 22:23 NBP Sys/Maddison/Mean (mmHg): 116 (QS system process) : 70 (QS system process) : 88 (QS system process) Pulse: 79 (QS system process) LaborFlag: Antepartum (QS system process) Datetime: 11/02/2016 22:19 Monitor Mode: External; Palpation (Crystal [place], RN) Frequency (min): 0 (C[place], RN) Resting Tone (Palpate): Relaxed (C[place], RN) Monitor Mode: External US (C[place], RN) FHR Baseline Rate : 120 (C[place], RN) Variability: Moderate 6-25 bpm (Crystal Gaston, RN) Accelerations: 15X15 (Crystal Gaston, RN) Decelerations: None (Crystal Gaston, RN) Datetime: 11/02/2016 22:09 NBP Sys/Maddison/Mean (mmHg): 131 (QS system process) : 71 (QS system process) : 96 (QS system process) Pulse: 87 (QS system process) LaborFlag: Antepartum (QS system process)
[2016-11-03] MEDS ORDERED: OXYTOCIN/NORMAL SALINE 1,000 ML IV PRN ×2 (09:00→12:29)
[2016-11-03] MEDS ORDERED: OXYTOCIN/NORMAL SALINE 20 UNIT/1,000 ML RTUINJ ONE (09:16)
--- NOTE | 2016-11-03 10:01 | L&D Flow Sheet ---
LD Flowsheet Datetime Report Generated by CPN: 11/03/2016 10:00 Datetime: 11/03/2016 09:24 Pitocin (milliunit): Pitocin Started (milliunits) @ 2 (January Margarito, RN) Datetime: 11/03/2016 09:16 Antibiotics: Penicillin IV (Units) @ 2.5 milliom (January Margarito, RN)
--- NOTE | 2016-11-03 10:30 | L&D Progress Notes ---
PROGRESS NOTES Datetime Report Generated by CPN: 11/03/2016 10:29 PROGRESS NOTE Impression: Reassuring Heart Rate Procedures: Artificial ROM; Sterile Vag Exam Plan: Continue Present Management; Induction Vital Signs : Reviewed; Within Normal Limits Comment: breathing with uc's, VE = 3/70/vtx/-2, AROM clear fluid, uc's increased, q 3-4 x 50-60, requesting epidural VAGINAL EXAM Dilatation: 0 Effacement: 0 Station: -2 MEMBRANES Pooling: Negative Membranes: Intact FETUS A FHR - Baseline: 130 Monitoring: External US Variability: Moderate 6-25bpm Accelerations: 15X15 Decelerations: None : 37.0 SIGNATURE SIGNATURE: [id number] SIGNATURE: [id number] SIGNATURE: [id number] SIGNATURE: [id number] Assignment: Trevor Haynes DO Signature: with User ID: [email or web address] : with User ID: [email or web address]
[2016-11-03] MEDS ORDERED: BUPIVACAINE HCL 0.25 % INJ/PF (2.5 MG/1 ML) 30 ML VIAL ONE (10:46)
[2016-11-03] MEDS ORDERED: EPHEDRINE SULFATE INJ 50 MG/1 ML AMPULE ONE (10:46)
[2016-11-03] MEDS ORDERED: FENTANYL/BUPIVACAINE/NS/PF 200 MCG/100 ML RTUINJ EPI ONE (10:46)
[2016-11-03] MEDS ORDERED: MISOPROSTOL 0.2 MG TABLET ONE (11:46)
[2016-11-03] MEDS ORDERED: LIDOCAINE 1% INJ-PF (10 MG/ML) 30 ML SDV ONE (11:47)
--- NOTE | 2016-11-03 12:00 | L&D Flow Sheet ---
LD Flowsheet Datetime Report Generated by CPN: 11/03/2016 12:00 Datetime: 11/03/2016 11:44 Monitor Mode: Internal Scalp Electrode (January Pimentel RN) Monitor Interventions for FHR: FSE Applied (January Pimentel RN) Comments: RN at bedside continously monitoring FHTs while patient pushes (January Pimentel RN) Dilatation (cm): 10.0 (January Pimentel RN) Effacement (%): 100 (January Pimentel RN) Station: 1 (January Pimentel RN) Exam by: JRajat Hernandez CNM (January Pimentel RN) Pushing: Urge to Push (January Pimentel RN) Datetime: 11/03/2016 11:43 NBP Sys/Maddison/Mean (mmHg): 121 (QS system process) : 88 (QS system process) : 100 (QS system process) Pulse: 115 (QS system process) LaborFlag: Antepartum (QS system process) Datetime: 11/03/2016 11:41 NBP Sys/Maddison/Mean (mmHg): 141 (QS system process) : 71 (QS system process) : 98 (QS system process) Pulse: 98 (QS system process) LaborFlag: Antepartum (QS system process) Datetime: 11/03/2016 11:40 NBP Sys/Maddison/Mean (mmHg): 158 (QS system process) : 73 (QS system process) : 105 (QS system process) Pulse: 94 (QS system process) LaborFlag: Antepartum (QS system process) Datetime: 11/03/2016 11:39 NBP Sys/Maddison/Mean (mmHg): 149 (QS system process) : 76 (QS system process) : 107 (QS system process) Pulse: 116 (QS system process) LaborFlag: Antepartum (QS system process) Datetime: 11/03/2016 11:38 NBP Sys/Maddison/Mean (mmHg): 163 (QS system process) : 84 (QS system process) : 113 (QS system process) Pulse: 99 (QS system process) Epidural Procedure Other: Pump Started (January Margarito, RN) LaborFlag: Antepartum (QS system process) Datetime: 11/03/2016 11:37 Pulse: 104 (QS system process) SpO2 (%): 100 (QS system process) LaborFlag: Antepartum (QS system process) Datetime: 11/03/2016 11:36 NBP Sys/Maddison/Mean (mmHg): 171 (QS system process) : 86 (QS system process) : 123 (QS system process) Pulse: 111 (QS system process) LaborFlag: Antepartum (QS system process) Datetime: 11/03/2016 11:35 NBP Sys/Maddison/Mean (mmHg): 164 (QS system process) : 101 (QS system process) : 127 (QS system process) Pulse: 102 (QS system process) Epidural Procedure: Test Dose (January Pimentel RN) LaborFlag: Antepartum (QS system process) Datetime: 11/03/2016 11:34 Epidural Procedure: Cath Placed (January Pimentel RN) Datetime: 11/03/2016 11:32 Pulse: 135 (QS system process) SpO2 (%): 99 (QS system process) Procedure Verify: Correct Patient Identity; Accurate Procedure Consent Form; Agreement on Procedure to be Done; Correct Patient Position (January Pimentel RN) Anesthesia Plans: Epidural (January Pimentel RN) Epidural Positioning: Sitting (January Pimentel RN) Anesthesia Comments: Dr. Matt at bedside (January Pimentel RN) LaborFlag: Antepartum (QS system process) Datetime: 11/03/2016 11:31 NBP Sys/Maddison/Mean (mmHg): 154 (QS system process) : 89 (QS system process) : 115 (QS system process) Pulse: 114 (QS system process) LaborFlag: Antepartum (QS system process) Datetime: 11/03/2016 11:29 Dilatation (cm): 8.0 (January Margarito, RN) Effacement (%): 100 (January Margraito, RN) Station: -1 (January Meridames, RN) Exam by: Juan R Hernandez CNM (January Margarito, RN) Datetime: 11/03/2016 11:27 Pulse: 117 (QS system process) SpO2 (%): 99 (QS system process) LaborFlag: Antepartum (QS system process) Datetime: 11/03/2016 11:26 NBP Sys/Maddison/Mean (mmHg): 138 (QS system process) : 101 (QS system process) : 116 (QS system process) Pulse: 96 (QS system process) LaborFlag: Antepartum (QS system process) Datetime: 11/03/2016 11:22 Pulse: 106 (QS system process) Pulse: 114 (QS system process) SpO2 (%): 99 (QS system process) SpO2 (%): 78 (QS system process) LaborFlag: Antepartum (QS system process) Datetime: 11/03/2016 11:19 NBP Sys/Maddison/Mean (mmHg): 136 (QS system process) : 84 (QS system process) : 107 (QS system process) Pulse: 97 (QS system process) LaborFlag: Antepartum (QS system process) Datetime: 11/03/2016 11:17 Pulse: 131 (QS system process) SpO2 (%): 98 (QS system process) LaborFlag: Antepartum (QS system process) Datetime: 11/03/2016 11:12 Pulse: 88 (QS system process) SpO2 (%): 100 (QS system process) LaborFlag: Antepartum (QS system process) Datetime: 11/03/2016 11:07 Pulse: 131 (QS system process) SpO2 (%): 93 (QS system process) LaborFlag: Antepartum (QS system process) Datetime: 11/03/2016 11:02 Pulse: 104 (QS system process) SpO2 (%): 100 (QS system process) LaborFlag: Antepartum (QS system process) Datetime: 11/03/2016 11:01 Epidural Positioning: Sitting (Acrla Marlatt, RN) Datetime: 11/03/2016 10:56 Communication Comments: Dr. Shaka called and informed of pt request for epidural. MD stated he would be about 15 minutes (January Margarito, RN) Datetime: 11/03/2016 10:49 I/O Interventions: Up to BR (January Margarito, RN) Datetime: 11/03/2016 10:46 Dilatation (cm): 3.5 (January Pimentel, RN) Effacement (%): 80 (January Meridames, RN) Station: -2 (January Pimentel, RN) Exam by: A. Margarito RN (January Pimentel, RN) Vaginal Exam Comments: pt stating she feels pressure in her bottom (January Pimentel, RN) Datetime: 11/03/2016 10:20 Pitocin (milliunit): Pitocin Increased to (milliunits) @ 6 (January Pimentel, KRISTA) Datetime: 11/03/2016 10:19 Anesthesia Comments: LR bolus started (January Pimentel, KRISTA) Datetime: 11/03/2016 10:18 Dilatation (cm): 3.0 (January Pimentel RN) Effacement (%): 70 (January Pimentel RN) Station: -2 (January Pimentel RN) Exam by: Esther Pimentel RN (January Pimentel RN) Membrane Status: Ruptured (January Pimentel RN) Membranes Rupture Method: Spontaneous (January Pimentel RN) Amniotic Fluid Color: Clear (January Pimentel RN) Amniotic Fluid Amount: Moderate (January Pimentel RN) Datetime: 11/03/2016 10:16 Communication Comments: J. Hernandez CNM at bedside (January Pimentel, RN) Datetime: 11/03/2016 10:03 Pitocin (milliunit): Pitocin Increased to (milliunits) @ 4 (January Pimentel, KRISTA)
[2016-11-03] MEDS ORDERED: GLYCERIN/WITCH HAZEL LEAF 1 EACH MED..PAD TP PRN (12:29)
[2016-11-03] MEDS ORDERED: MEASLES,MUMPS&RUBELLA VACC/PF 0.5 ML VIAL SUBCUT PRN (12:29)
[2016-11-03] MEDS ORDERED: MISOPROSTOL 0.2 MG TABLET PR ONE (12:29)
[2016-11-03] MEDS ORDERED: PROMETHAZINE HCL 25 MG SUPP.RECT PR PRN (12:29)
[2016-11-03] MEDS ORDERED: DIBUCAINE 1% OINTMENT 28 GM TP PRN (12:29)
[2016-11-03] MEDS ORDERED: NA PHOS,M-B/NA PHOS,DI-BA (ADULT) 133 ML ENEMA PR PRN (12:29)
[2016-11-03] MEDS ORDERED: DIPH/PERTUSS(ACELL)/TETANUS VAC/PF 0.5 ML SYR (>=10YO) IM PRN (12:29)
[2016-11-03] MEDS ORDERED: DIPHENHYDRAMINE HCL 25 MG CAPSULE PO PRN (12:29)
[2016-11-03] MEDS ORDERED: PROMETHAZINE HCL 25 MG TABLET PO PRN (12:29)
[2016-11-03] MEDS ORDERED: ACETAMINOPHEN WITH CODEINE #3 TABLET PO PRN (12:29)
[2016-11-03] MEDS ORDERED: ACETAMINOPHEN 650 MG SUPP.RECT PR PRN (12:29)
[2016-11-03] MEDS ORDERED: PSEUDOEPHEDRINE HCL 30 MG TABLET PO PRN (12:29)
[2016-11-03] MEDS ORDERED: PROMETHAZINE HCL INJ 25 MG/1 ML VIAL IV PRN (12:29)
[2016-11-03] MEDS ORDERED: BENZOCAINE/MENTHOL AEROSOL SPRAY 56 ML TOP PRN (12:29)
[2016-11-03] MEDS ORDERED: MAGNESIUM HYDROXIDE SUSP 30 ML UDCUP PO PRN (12:29)
[2016-11-03] MEDS ORDERED: ZOLPIDEM TARTRATE 5 MG TABLET PO PRN (12:29)
[2016-11-03 12:38] LABS: ARTERIAL BLOOD O2 SATURATION 29.2 % (94-98)
--- NOTE | 2016-11-03 14:00 | L&D Flow Sheet ---
LD Flowsheet Datetime Report Generated by CPN: 11/03/2016 14:00 Datetime: 11/03/2016 13:05 NBP Sys/Maddison/Mean (mmHg): 122 (QS system process) : 86 (QS system process) : 100 (QS system process) Pulse: 78 (QS system process) LaborFlag: Antepartum (QS system process) Datetime: 11/03/2016 13:00 Respirations: 16 (January Margarito, RN) Pain Scale: 0 (January Margarito, RN) Pain Presence: None/Denies (January Margarito, RN) Pain Type: N/A (January Margarito, RN) LaborFlag: Antepartum (QS system process) Datetime: 11/03/2016 12:45 Respirations: 16 (January Margarito, RN) Pain Scale: 0 (January Margarito, RN) Pain Presence: None/Denies (January Margarito, RN) Pain Type: N/A (January Margarito, RN) LaborFlag: Antepartum (QS system process) Datetime: 11/03/2016 12:30 Respirations: 17 (January Margarito, RN) Pain Scale: 0 (January Margarito, RN) Pain Presence: None/Denies (January Margarito, RN) Pain Type: N/A (January Margarito, RN) LaborFlag: Antepartum (QS system process) Datetime: 11/03/2016 12:20 NBP Sys/Maddison/Mean (mmHg): 142 (QS system process) : 86 (QS system process) : 102 (QS system process) Pulse: 95 (QS system process) LaborFlag: Antepartum (QS system process) Datetime: 11/03/2016 12:15 Respirations: 16 (January Pimentel RN) Temperature (F): 98.2 (January Pimentel, RN) Temperature (C): 36.8 (QS system process) Pain Scale: 0 (January Pimentel, KRISTA) Pain Presence: None/Denies (January Pimentel, RN) Pain Type: N/A (January Pimentel, RN) LaborFlag: Antepartum (QS system process) Datetime: 11/03/2016 12:05 NBP Sys/Maddison/Mean (mmHg): 133 (QS system process) : 80 (QS system process) : 98 (QS system process) Pulse: 123 (QS system process) LaborFlag: Antepartum (QS system process) Datetime: 11/03/2016 12:03 Respirations: 17 (January Pimentel RN) Pain Scale: 0 (January Pimentel RN) Pain Presence: None/Denies (January Pimentel RN) Pain Type: N/A (January Pimentel RN) LaborFlag: Antepartum (QS system process)
--- NOTE | 2016-11-03 14:44 | Delivery Summary ---
Del Sum A-C Datetime Report Generated by CPN: 11/03/2016 14:44 ADMISSION DATA Chief Complaint: Scheduled Induction of Labor Indication for Induction: Gest. HTN/PreEclampsia/Eclampsia Admission Impression: Term, Intrauterine Admit Provider Comments: bp in office 138/102 DELIVERY PERSONNEL Delivery Doctor:: Tuyet Hernandez CNM Nurse Blood Donor Recruiter Certified:: Tuyet Hernandez CNM Labor and Delivery Nurse:: January Pimentel RNgrading clerk Nurse:: Carla Ward RN MATERNAL INFORMATION Delivery Anesthesia: Epidural Estimated Blood Loss (ml): 300 Maternal Complications: None Provider Comments: Pt. progressed quickly after epidural, urge to push, complete, started pushing, rotated from OP to OA, delivered live male from OA to ZACARIAS , compound hand, left periurethral, placed on mothers abdomen, cord blood collected for Via Cord, large amount obtained, coed gas and cord blood obtained. Dad cut cord. Spont delivery of placenta, 3 VC, EBL 300cc, Pitocin started, FFFM, cytotec 600mcg via rectum. Baby has facial bruising and some grunting when not stimulated. To nursery for evaluation Mom remains in recovery in stable condition. LABOR SUMMARY EDC: 11/20/2016 00:00 No. Babies in Womb: 1 LABOR INFORMATION Reason for Induction: Gestational Hypertension; Other Reason for Induction- Other: GDM Onset of Labor: 11/03/2016 09:00 Complete Dilatation: 11/03/2016 11:44 Cervical Ripening Agents: Cervidil Oxytocin: Induction Group B Beta Strep: positive Antibiotics # of Doses: 2 Antibiotics Time of Last Dose: 915 Name of Antibiotic Given: PCN G Steroids Given: None Reason Steroids Not Administered: Not Applicable MEMBRANES Membranes Rupture Method: Spontaneous Rupture of Membranes: 11/03/2016 10:18 Length of Rupture (hr): 1.65 Amniotic Fluid Color: Clear Amniotic Fluid Amount: Moderate STAGES OF LABOR Stage 1 hr: 2 Stage 1 min: 44 Stage 2 hr: 0 Stage 2 min: 13 Stage 3 hr: 0 Stage 3 min: 6 Total Time in Labor hr: 3 Total Time in Labor min: 3 VAGINAL DELIVERY Episiotomy: None Laceration Extension: N/A Laceration Type: Periurethral Laceration Repair: Not Applicable Laceration Repair Note: no suturing needed Sponge Count Correct: N/A; Yes Sharps Count Correct: Yes CSECTION DELIVERY Primary Indication: N/A Secondary Indication: N/A CSection Incidence: N/A Labor: N/A Elective: N/A CSection Incision: N/A BABY A INFORMATION Delivery Date/Time: 11/03/2016 11:57 Method of Delivery: Vaginal Born in Route : No : N/A Forceps: N/A Vacuum Extraction: N/A Shoulder Dystocia : No PRESENTATION/POSITION BABY A Presentation: Cephalic Cephalic Presentation: N/A Vertex Position: Left Occipital Anterior Breech Presentation: N/A PLACENTA INFORMATION BABY A Placenta Delivery Time : 11/03/2016 12:03 Placenta Method of Delivery: Spontaneous Placenta Status: Delivered SCORES BABY A Heart Rate 1 min: >100 bpm Resp Effort 1 min: Good Cry Reflex Irritability 1 min: Cough or Sneeze or Pulls Away Muscle Tone 1 min: Some Flexion of Extremities Color 1 min: Body Retreat, Extremities Blue Resuscitation Effort 1 min: Tactile Stimulation SCORE 1 MIN: 8 Heart Rate 5 min: >100 bpm Resp Effort 5 min: Good Cry Reflex Irritability 5 min: Cough or Sneeze or Pulls Away Muscle Tone 5 min: Some Flexion of Extremities Color 5 min: Body Retreat, Extremities Blue Resuscitation Effort 5 min: Tactile Stimulation SCORE 5 MIN: 8 INFANT INFORMATION BABY A Gestational Age at Delivery: 37.4 Gestational Status: Early Term- 37- 38.6 Weeks Outcome : Liveborn Infant Condition : Stable Infant Sex: Male IDENTIFICATION BABY A Verification Date/Time: 11/03/2016 12:15 ID Band Number: [id number] Mother's Name Verified: Yes RN Verifying Infant: Micheal RN/ Mike Ward RN WEIGHT/LENGTH BABY A Birthweight (gm): 3010 Weight (lb): 6 Infant Weight (oz): 10 Infant Length (in): 19.00 Length (cm): 48.26 CORD INFORMATION BABY A No. Cord Vessels: 3 Nuchal Cord : N/A Nuchal Cord- Other: right compound hand Cord Blood Taken: Yes-For Storage (Mom's Blood type +) Infant Suction: Mouth ASSESSMENT BABY A Complications: None Physical Findings at Delivery: Other Physical Findings- Other: facial bruising, Respirations: Grunting; Nasal Flaring Skin to Skin: Yes Skin to Skin Time (min): 20 Rn Family/ALS Called : No Care By: Mike Ward RN Transferred To: [facility]
--- NOTE | 2016-11-03 14:47 | Admission Physical ---
Datetime Report Generated by CPN: 11/03/2016 14:47 CURRENT ADMISSION Chief Complaint: Scheduled Induction of Labor Indication for Induction: Gest. HTN/PreEclampsia/Eclampsia Admit Plan: Admit to Unit; Initiate Labor Induction Protocol ALLERGIES Medication Allergies: No Medication Allergies: No Known Allergies (11/02/2016) Latex: Latex Allergies OBSTETRICAL HISTORY EDC: 11/20/2016 00:00 : 2 Para: 1 Term: 1 : 0 SAB: 0 IAB: 0 Ectopic: 0 Livin Cesareans: 0 VBACs: 0 Multiple Births: 0 Gestational Diabetes: No Rh Sensitization: No Incompetent Cervix: No RADHA: No Infertility: No ART Treatment: No Uterine Anomaly: No IUGR: No Hx Previous C/S: No Macrosomia: No Hx Loss/Stillborn: No PIH: No Hx : No Placenta Previa/Abruption: No Depression/PP Depression: No PTL/PROM: No Post Hemorrhage: No Current Procedures: Ultrasound Obstetrical History Comments: 2006- Baby boy SEE RECORDS Alcohol: No Marijuana : No Cocaine: No Other Illicit Drugs: No Cigarettes: Former Smoker. [id number] MEDICAL HISTORY Diabetes: No Diabetes Type: Gestational Diabetes Blood Transfusion: No Pulmonary Disease (Asthma, TB): No Breast Disease: No Hypertension: No Cause Analyst Surgery: No Heart Disease: No Hosp/Surgery: No Autoimmune Disorder: No Anesthetic Complications: No Kidney Disease: No Abnormal Pap Smear: Yes Neuro/Epilepsy: No Psychiatric Disorders: No Other Medical Diseases: No Hepatitis/Liver Disease: No Significant Family History: No Varicosities/Phlebitis: No Trauma/Violence : No Thyroid Dysfunction: No Medical History Comments: HPV;GHTN INFECTIOUS HISTORY Gonorrhea: No Genital Herpes: No Chlamydia: No Tuberculosis: No Syphilis: No Hepatitis: No HIV/AIDS Exposure: No Rash or Viral Illness: No HPV: No PHYSICAL EXAM General: Normal HEENT: Normal Neurologic: Normal Thyroid: Normal Heart: Normal Lungs: Normal Breast: Deferred Back: Normal Abdomen: Normal Genitourinary Exam: Normal Extremities: Normal DTRs: Normal Pelvic Type: Adequate Vital Signs: Reviewed VAGINAL EXAM Dilatation: 0 Effacement: 0 Station: -2 MEMBRANES Pooling: Negative Membranes: Intact FETUS A EGA: 37.3 Monitoring: External US FHR- Baseline: 140 Variability: Moderate 6-25bpm Accelerations: 15X15 Decelerations: None FHR Category: Category I Admit Comment: bp in office 138/102 PLANS FOR LABOR AND DELIVERY Pain Management: Epidural Feeding Preference: Breast Benefit of Breast Feed Discussed: Yes Circumcision: Yes INFORMED CONSENT Signature: with User ID: [email or web address]
--- NOTE | 2016-11-03 16:00 | L&D Flow Sheet ---
LD Flowsheet Datetime Report Generated by CPN: 11/03/2016 16:00 Datetime: 11/03/2016 14:00 Respirations: 16 (January Pimentel RN) Pain Scale: 0 (January Pimentel RN) Pain Presence: None/Denies (January Pimentel RN) Pain Type: N/A (January Pimentel RN) LaborFlag: Antepartum (QS system process)
[2016-11-03] MEDS: IBUPROFEN 800 MG TABLET PO SCH ×2 (17:17→21:18)
[2016-11-03] MEDS: DOCUSATE SODIUM 100 MG CAPSULE PO SCH (17:28)
[2016-11-03] MEDS: FERROUS SULFATE 325 MG TABLET PO SCH (17:29)
[2016-11-03] MEDS: ACETAMINOPHEN WITH CODEINE #3 TABLET PO PRN (17:29)
--- NOTE | 2016-11-03 19:01 | L&D Flow Sheet ---
LD Flowsheet Datetime Report Generated by CPN: 11/03/2016 19:00 Datetime: 11/03/2016 14:00 Respirations: 16 (January Margarito, RN) Pain Scale: 0 (January Margarito, RN) Pain Presence: None/Denies (January Margarito, RN) Pain Type: N/A (January Margarito, RN) LaborFlag: Antepartum (QS system process) Datetime: 11/03/2016 13:30 Respirations: 16 (January Margarito, RN) Pain Scale: 0 (January Margarito, RN) Pain Presence: None/Denies (January Margarito, RN) Pain Type: N/A (January Margarito, RN) LaborFlag: Antepartum (QS system process) Datetime: 11/03/2016 13:05 NBP Sys/Maddison/Mean (mmHg): 122 (QS system process) : 86 (QS system process) : 100 (QS system process) Pulse: 78 (QS system process) LaborFlag: Antepartum (QS system process) Datetime: 11/03/2016 13:00 Respirations: 16 (January Margarito, RN) Pain Scale: 0 (January Margarito, RN) Pain Presence: None/Denies (January Margarito, RN) Pain Type: N/A (January Margarito, RN) LaborFlag: Antepartum (QS system process) Datetime: 11/03/2016 12:45 Respirations: 16 (January Margarito, RN) Pain Scale: 0 (January Margarito, RN) Pain Presence: None/Denies (January Margarito, RN) Pain Type: N/A (January Margarito, RN) LaborFlag: Antepartum (QS system process) Datetime: 11/03/2016 12:30 Respirations: 17 (January Margarito, RN) Pain Scale: 0 (January Margarito, RN) Pain Presence: None/Denies (January Margarito, RN) Pain Type: N/A (January Margarito, RN) LaborFlag: Antepartum (QS system process) Datetime: 11/03/2016 12:20 NBP Sys/Maddison/Mean (mmHg): 142 (QS system process) : 86 (QS system process) : 102 (QS system process) Pulse: 95 (QS system process) LaborFlag: Antepartum (QS system process) Datetime: 11/03/2016 12:15 Respirations: 16 (January Maragrito, RN) Temperature (F): 98.2 (January Margarito, RN) Temperature (C): 36.8 (QS system process) Pain Scale: 0 (January Margarito, RN) Pain Presence: None/Denies (January Margarito, RN) Pain Type: N/A (January Margarito, RN) LaborFlag: Antepartum (QS system process) Datetime: 11/03/2016 12:05 NBP Sys/Maddison/Mean (mmHg): 133 (QS system process) : 80 (QS system process) : 98 (QS system process) Pulse: 123 (QS system process) LaborFlag: Antepartum (QS system process) Datetime: 11/03/2016 12:03 Respirations: 17 (January Margarito, RN) Pain Scale: 0 (January Margarito, RN) Pain Presence: None/Denies (January Margarito, RN) Pain Type: N/A (January Margarito, RN) LaborFlag: Antepartum (QS system process) Datetime: 11/03/2016 11:52 Patient Position/Activity: Left Lateral (January Margarito, RN) Pushing Position: Pushing Left Side (January Margarito, RN) Datetime: 11/03/2016 11:45 Monitor Mode: External; Palpation (January Margarito, RN) Frequency (min): 1-2 (January Meridames, RN) Quality: Strong (January Margarito, RN) Duration (sec): 60-80 (January Margarito, RN) Resting Tone (Palpate): Relaxed (January Pimentel, RN) Monitor Mode: External US (January Pimentel, RN) Comments: unable to determine due pt position (January Pimentel, RN) Datetime: 11/03/2016 11:44 Monitor Mode: Internal Scalp Electrode (January Pimentel, RN) Monitor Interventions for FHR: FSE Applied (January Pimentel, RN) Comments: RN at bedside continously monitoring FHTs while patient pushes (January Pimentel, RN) Dilatation (cm): 10.0 (January Pimentel, RN) Effacement (%): 100 (January Pimentel, RN) Station: 1 (January Pimentel, RN) Exam by: Juan R Hernandez CNM (January Pimentel, RN) Pushing: Urge to Push (January Pimentel, RN) Datetime: 11/03/2016 11:43 NBP Sys/Maddison/Mean (mmHg): 121 (QS system process) : 88 (QS system process) : 100 (QS system process) Pulse: 115 (QS system process) Communication Comments: Juan R Hernandez at bedside (January Margarito, RN) LaborFlag: Antepartum (QS system process) Datetime: 11/03/2016 11:41 NBP Sys/Maddison/Mean (mmHg): 141 (QS system process) : 71 (QS system process) : 98 (QS system process) Pulse: 98 (QS system process) Patient Position/Activity: Right Lateral (January Margarito, RN) LaborFlag: Antepartum (QS system process) Datetime: 11/03/2016 11:40 NBP Sys/Maddison/Mean (mmHg): 158 (QS system process) : 73 (QS system process) : 105 (QS system process) Pulse: 94 (QS system process) Patient Position/Activity: Left Lateral (January Margarito, RN) LaborFlag: Antepartum (QS system process) Datetime: 11/03/2016 11:39 NBP Sys/Maddison/Mean (mmHg): 149 (QS system process) : 76 (QS system process) : 107 (QS system process) Pulse: 116 (QS system process) Patient Position/Activity: Left Tilt (January Pimentel, RN) LaborFlag: Antepartum (QS system process) Datetime: 11/03/2016 11:38 NBP Sys/Maddison/Mean (mmHg): 163 (QS system process) : 84 (QS system process) : 113 (QS system process) Pulse: 99 (QS system process) Epidural Procedure Other: Pump Started (January Margarito, RN) LaborFlag: Antepartum (QS system process) Datetime: 11/03/2016 11:37 Pulse: 104 (QS system process) SpO2 (%): 100 (QS system process) LaborFlag: Antepartum (QS system process) Datetime: 11/03/2016 11:36 NBP Sys/Maddison/Mean (mmHg): 171 (QS system process) : 86 (QS system process) : 123 (QS system process) Pulse: 111 (QS system process) LaborFlag: Antepartum (QS system process) Datetime: 11/03/2016 11:35 NBP Sys/Maddison/Mean (mmHg): 164 (QS system process) : 101 (QS system process) : 127 (QS system process) Pulse: 102 (QS system process) Epidural Procedure: Test Dose (January Margarito, RN) LaborFlag: Antepartum (QS system process) Datetime: 11/03/2016 11:34 Epidural Procedure: Cath Placed (January Pimentel RN) Datetime: 11/03/2016 11:32 Pulse: 135 (QS system process) SpO2 (%): 99 (QS system process) Procedure Verify: Correct Patient Identity; Accurate Procedure Consent Form; Agreement on Procedure to be Done; Correct Patient Position (January Pimentel RN) Anesthesia Plans: Epidural (January Pimentel RN) Epidural Positioning: Sitting (January Pimentel RN) Anesthesia Comments: Dr. Matt at bedside (January Pimentel RN) LaborFlag: Antepartum (QS system process) Datetime: 11/03/2016 11:31 NBP Sys/Maddison/Mean (mmHg): 154 (QS system process) : 89 (QS system process) : 115 (QS system process) Pulse: 114 (QS system process) LaborFlag: Antepartum (QS system process) Datetime: 11/03/2016 11:30 Monitor Mode: External; Palpation (January Margarito, RN) Frequency (min): 1-3 (January Margarito, RN) Quality: Moderate to Strong (January Margarito, RN) Duration (sec): 60-80 (January Margarito, RN) Resting Tone (Palpate): Relaxed (January Margarito, RN) Contraction Comments: 1-3 (January Margarito, RN) Comments: unable to determine due to pt position (January Margarito, RN) Datetime: 11/03/2016 11:29 Dilatation (cm): 8.0 (January Margarito, RN) Effacement (%): 100 (January Margarito, RN) Station: -1 (January Margarito, RN) Exam by: Juan R Hernandez CNM (January Margarito, RN) Datetime: 11/03/2016 11:27 Pulse: 117 (QS system process) SpO2 (%): 99 (QS system process) LaborFlag: Antepartum (QS system process) Datetime: 11/03/2016 11:26 NBP Sys/Maddison/Mean (mmHg): 138 (QS system process) : 101 (QS system process) : 116 (QS system process) Pulse: 96 (QS system process) LaborFlag: Antepartum (QS system process) Datetime: 11/03/2016 11:22 Pulse: 106 (QS system process) Pulse: 114 (QS system process) SpO2 (%): 99 (QS system process) SpO2 (%): 78 (QS system process) LaborFlag: Antepartum (QS system process) Datetime: 11/03/2016 11:19 NBP Sys/Maddison/Mean (mmHg): 136 (QS system process) : 84 (QS system process) : 107 (QS system process) Pulse: 97 (QS system process) LaborFlag: Antepartum (QS system process) Datetime: 11/03/2016 11:17 Pulse: 131 (QS system process) SpO2 (%): 98 (QS system process) LaborFlag: Antepartum (QS system process) Datetime: 11/03/2016 11:15 Monitor Mode: External; Palpation (January Margarito, RN) Frequency (min): 2-3 (January Margarito, RN) Quality: Moderate to Strong (January Margarito, RN) Duration (sec): 50-80 (January Margarito, RN) Resting Tone (Palpate): Relaxed (January Margarito, RN) Comments: unable to determine (January Margarito, RN) Datetime: 11/03/2016 11:12 Pulse: 88 (QS system process) SpO2 (%): 100 (QS system process) LaborFlag: Antepartum (QS system process) Datetime: 11/03/2016 11:09 Anesthesia Comments: Dr Matt called stating that due to trauma in ED, he will be at least 20 minutes (January Margarito, RN) Datetime: 11/03/2016 11:07 Pulse: 131 (QS system process) SpO2 (%): 93 (QS system process) LaborFlag: Antepartum (QS system process) Datetime: 11/03/2016 11:02 Pulse: 104 (QS system process) SpO2 (%): 100 (QS system process) Anesthesia Comments: pt sitting up for epidural placement (January Pimentel, RN) LaborFlag: Antepartum (QS system process) Datetime: 11/03/2016 11:01 Epidural Positioning: Sitting (Carla Fuchstt, RN) Datetime: 11/03/2016 11:00 Monitor Mode: External; Palpation (January Margarito, RN) Frequency (min): 1-3 (January Margarito, RN) Quality: Moderate (January Margarito, RN) Duration (sec): 60-80 (January Margarito, RN) Resting Tone (Palpate): Relaxed (January Margarito, RN) Monitor Mode: External US (January Margarito, RN) FHR Baseline Rate : 135 (January Margarito, RN) Variability: Moderate 6-25 bpm (January Margarito, RN) Accelerations: 15X15 (January Margarito, RN) Decelerations: Variable (January Margarito, RN) Datetime: 11/03/2016 10:57 Comments: pt standing on side of bed, monitors tracing maternal HR (January Margarito, RN) Datetime: 11/03/2016 10:56 Communication Comments: Dr. Matt called and informed of pt request for epidural. MD stated he would be about 15 minutes (January Pimentel RN) Datetime: 11/03/2016 10:49 I/O Interventions: Up to BR (January Pimentel, KRISTA) Datetime: 11/03/2016 10:46 Dilatation (cm): 3.5 (January Pimentel RN) Effacement (%): 80 (January Pimentel RN) Station: -2 (January Pimentel RN) Exam by: Esther Pimentel RN (January Pimentel RN) Vaginal Exam Comments: pt stating she feels pressure in her bottom (January Pimentel RN) Datetime: 11/03/2016 10:45 Monitor Mode: External; Palpation (January Margarito, RN) Frequency (min): 1-3 (January Margarito, RN) Quality: Moderate (January Margarito, RN) Duration (sec): 50-70 (January Margarito, RN) Resting Tone (Palpate): Relaxed (January Margarito, RN) Monitor Mode: External US (January Margarito, RN) FHR Baseline Rate : 125 (January Margarito, RN) Variability: Moderate 6-25 bpm (January Margarito, RN) Accelerations: 15X15 (January Margarito, RN) Decelerations: None (January Margarito, RN) Datetime: 11/03/2016 10:32 Comments: pt sitting up in bed monitor tracing maternal HR (January Margarito, RN) Communication: RN at Bedside (January Margarito, RN) Datetime: 11/03/2016 10:30 Monitor Mode: External; Palpation (January Margarito, RN) Frequency (min): 2-3 (January Margarito, RN) Quality: Moderate (January Margarito, RN) Duration (sec): 40-70 (January Margarito, RN) Resting Tone (Palpate): Relaxed (January Margarito, RN) Monitor Mode: External US (January Margarito, RN) FHR Baseline Rate : 135 (January Margarito, RN) Variability: Moderate 6-25 bpm (January Margarito, RN) Accelerations: 15X15 (January Margarito, RN) Decelerations: None (January Margarito, RN) Datetime: 11/03/2016 10:20 Pitocin (milliunit): Pitocin Increased to (milliunits) @ 6 (January Margarito, RN) Datetime: 11/03/2016 10:19 Anesthesia Comments: LR bolus started (January Pimentel, KRISTA) Datetime: 11/03/2016 10:18 Dilatation (cm): 3.0 (January Pimentel RN) Effacement (%): 70 (January Pimentel RN) Station: -2 (January Pimentel RN) Exam by: Esther Pimentel RN (January Pimentel RN) Membrane Status: Ruptured (January Pimentel RN) Membranes Rupture Method: Spontaneous (January Pimentel RN) Amniotic Fluid Color: Clear (January Pimentel RN) Amniotic Fluid Amount: Moderate (January Pimentel RN) Datetime: 11/03/2016 10:16 Communication Comments: Juan R Hernandez CNM at bedside (January Pimentel, KRISTA) Datetime: 11/03/2016 10:15 Monitor Mode: External; Palpation (January Margarito, RN) Frequency (min): 2-3 (January Margarito, RN) Quality: Moderate (January Margarito, RN) Duration (sec): 50-80 (January Margarito, RN) Resting Tone (Palpate): Relaxed (January Margarito, RN) Monitor Mode: External US (January Margarito, RN) FHR Baseline Rate : 135 (January Margarito, RN) Variability: Moderate 6-25 bpm (January Margarito, RN) Accelerations: None (January Margarito, RN) Decelerations: None (January Margarito, RN) Datetime: 11/03/2016 10:03 Pitocin (milliunit): Pitocin Increased to (milliunits) @ 4 (January Margarito, RN) Datetime: 11/03/2016 10:00 Monitor Mode: External (January Margarito, RN) Frequency (min): 2-3 (January Margarito, RN) Quality: Moderate (January Margarito, RN) Duration (sec): 40-60 (January Margarito, RN) Resting Tone (Palpate): Relaxed (January Margarito, RN) Monitor Mode: External US (January Margarito, RN) FHR Baseline Rate : 135 (January Margarito, RN) Variability: Moderate 6-25 bpm (January Margarito, RN) Accelerations: 15X15 (January Margarito, RN) Decelerations: None (January Margarito, RN) Datetime: 11/03/2016 09:45 Monitor Mode: External (January Margarito, RN) Frequency (min): 2-3 (January Margarito, RN) Quality: Mild (January Margarito, RN) Duration (sec): 60-80 (January Margarito, RN) Resting Tone (Palpate): Relaxed (January Margarito, RN) Monitor Mode: External US (January Margarito, RN) FHR Baseline Rate : 135 (January Margarito, RN) Variability: Moderate 6-25 bpm (January Margarito, RN) Accelerations: 15X15 (January Margarito, RN) Decelerations: None (January Margarito, RN) Datetime: 11/03/2016 09:30 Monitor Mode: External; Palpation (January Margarito, RN) Frequency (min): 2-4 (January Margarito, RN) Quality: Mild (January Margarito, RN) Duration (sec): 60-90 (January Margarito, RN) Resting Tone (Palpate): Relaxed (January Margarito, RN) Monitor Mode: External US (January Margarito, RN) FHR Baseline Rate : 130 (January Margarito, RN) Variability: Moderate 6-25 bpm (January Margarito, RN) Accelerations: 15X15 (January Margarito, RN) Decelerations: None (January Margarito, RN) Datetime: 11/03/2016 09:24 Pitocin (milliunit): Pitocin Started (milliunits) @ 2 (January Margarito, RN) Datetime: 11/03/2016 09:16 Antibiotics: Penicillin IV (Units) @ 2.5 milliom (January Margarito, RN) Datetime: 11/03/2016 07:44 Monitor Mode: External (January Margarito, RN) Frequency (min): 2-3 (January Margarito, RN) Quality: Mild (January Margarito, RN) Duration (sec): 60-80 (January Margarito, RN) Resting Tone (Palpate): Relaxed (January Margarito, RN) Monitor Mode: External US (January Margarito, RN) FHR Baseline Rate : 120 (January Margarito, RN) Variability: Moderate 6-25 bpm (January Margarito, RN) Accelerations: 15X15 (January Margarito, RN) Decelerations: None (January Margarito, RN) Communication Comments: monitors disconnected for pt to eat, shower and ambulate (January Margarito, RN) Datetime: 11/03/2016 07:43 Medication Comments: cervidil removed (January Margarito, RN) Datetime: 11/03/2016 07:34 Communication Comments: Dr. Haynes on unit, FHR strip reviewed by Order recieved to pull Cervidil now and let pt have hour off monitor (January Margarito, RN) Datetime: 11/03/2016 07:30 Monitor Mode: External; Palpation (January Margarito, RN) Frequency (min): 2-6 (January Margarito, RN) Quality: Mild (January Margarito, RN) Duration (sec): 40-80 (January Margarito, RN) Resting Tone (Palpate): Relaxed (January Margarito, RN) Monitor Mode: External US (January Margarito, RN) FHR Baseline Rate : 120 (January Margarito, RN) Variability: Moderate 6-25 bpm (January Margarito, RN) Accelerations: 15X15 (January Margarito, RN) Decelerations: None (January Margarito, RN) Datetime: 11/03/2016 07:28 Patient Position/Activity: Semi-Fowlers (January Margarito, RN) Datetime: 11/03/2016 07:26 Communication: RN at Bedside (January Margarito, RN) Datetime: 11/03/2016 07:17 NBP Sys/Maddison/Mean (mmHg): 117 (QS system process) : 91 (QS system process) : 100 (QS system process) Pulse: 102 (QS system process) LaborFlag: Antepartum (QS system process) Datetime: 11/03/2016 07:15 Communication: Report Given to @ Meredith Pimentel RN (Shantel Keatinggerdionna, RN) Datetime: 11/03/2016 07:00 Monitor Mode: External; Palpation (Shantel Rishabhgerwood, RN) Frequency (min): 1.5-3.5 (Shantel Ledgerwood, RN) Quality: Mild/Moderate (Shantel Ledgerwood, RN) Duration (sec): 50-70 (Shantel Ledgerwood, RN) Duration Criteria: Less than Two 120 Second Contractions (Shantel Ledgerwood, RN) Pattern: Normal: <= 5 Contractions in 10 Minutes (Shantel Ledgerwood, RN) Resting Tone (Palpate): Relaxed (Shantel Ledgerwood, RN) Monitor Mode: External US (Shantel Ledgerwood, RN) FHR Baseline Rate : 115 (Shantel Ledgerwood, RN) FHR Baseline Changes: No Baseline Change (Shantel Ledgerwood, RN) Variability: Moderate 6-25 bpm (Shantel Ledgerwood, RN) Accelerations: 10X10 (Shantel Ledgerwood, RN) Decelerations: None (Shantel Tovar RN)
[2016-11-03] MEDS: ONDANSETRON 4 MG TAB.RAPDIS PO PRN (20:22)
[2016-11-03] MEDS: FAMOTIDINE 20 MG TABLET PO SCH (21:18)
[2016-11-04] MEDS: ONDANSETRON 4 MG TAB.RAPDIS PO PRN ×2 (04:21→14:54)
[2016-11-04] MEDS: IBUPROFEN 800 MG TABLET PO SCH ×3 (05:56→21:08)
--- NOTE | 2016-11-04 06:01 | L&D Current Admission ---
Current Admit Datetime Report Generated by CPN: 11/04/2016 06:00 ADMISSION INFORMATION Current Admit Date/Time: 11/02/2016 21:08 (11/02/2016 21:08:Shantel Tovar RN) Reason for Admission: Induction of Labor (11/02/2016 21:08:Shantel Tovar RN) Chief Complaint: Scheduled Induction of Labor (11/02/2016 21:08:Renetta Feldman RN) EGA per Dates: 37.3 (11/02/2016 21:08:QS system process) Method of Arrival: Ambulatory (11/02/2016 21:08:Shantel Tovar RN) Admitted From: Home (11/02/2016 21:08:Renetta Feldman RN) Reason for Induction: Gestational Hypertension (11/02/2016 21:08:Shantel Tovar RN) General Admission Information: Reviewed (11/02/2016 21:08:Shantel Tovar RN) BELONGINGS/ADVANCED DIRECTIVES Other Belongings: see belongings consent (11/02/2016 21:08:Shantel Tovar RN) Disposition of Belongings: Kept with Patient (11/02/2016 21:08:Shantel Tovar RN) Advance Direct for Healthcare: Yes, Instructed to Bring In (11/02/2016 21:08:Shantel Tovar RN) Durable Power of Furniture Restorer: No (11/02/2016 21:08:Shantel Tovar RN) Living Will: No (11/02/2016 21:08:Shantel Tovar RN) Organ Donor: Yes (11/02/2016 21:08:Shantel Tovar RN) Pt Rights Information Given: Yes (11/02/2016 21:08:Shantel Tovar RN) Pt Understands Pt Rights: Yes (11/02/2016 21:08:Shantel Tovar RN) LEARNING ASSESSMENT Knowledge Level: Understands L_D Process; Understands Care Activities; Understands Diagnosis (11/02/2016 21:08:Shantel Tovar RN) Barriers to Learning: None (11/02/2016 21:08:Shantel Tovar RN) Learning Readiness: Motivated (11/02/2016 21:08:Shantel Tovar RN) Learns Best By: 1 to 1 Instruction (11/02/2016 21:08:Shantel Tovar RN) Learning Needs: Labor and Delivery Process; Pain Management; Symptoms to Report; Treatment Plan; Medication; Diagnosis; Nutrition; Equipment; Infant Care; Community Resources (11/02/2016 21:08:Shantel Tovar RN) DOMESTIC VIOLANCE SCREENING Dom Viol Threatened/Hurt: No (11/02/2016 21:08:Shantel Tovar RN) Hx of Abuse/Neglect past 2yrs: No (11/02/2016 21:08:Shantel Tovar RN) Feel Unsafe Going Home: No (11/02/2016 21:08:Shantel Tovar RN) Addt'l Observ Indicating Abuse: No (11/02/2016 21:08:Shantel Tovar RN) Reason Unable to Complete Screen: N/A, Screen Completed (11/02/2016 21:08:Shantel Tovar RN) Considered Personal Harm/Suicide: No (11/02/2016 21:08:Shantel Tovar RN) NUTRITIONAL/FUNCTIONAL SCREENING Problem with Appetite >5 Days: No (11/02/2016 21:08:Shantel Tovar RN) Chew/Swallow Difficulties: No (11/02/2016 21:08:Shantel Tovar RN) Inappropriate Wt Gain/Loss: No (11/02/2016 21:08:Shantel Tovar RN) Presence Skin Breakdown/Ulcer: No (11/02/2016 21:08:Shantel Tovar RN) Special Diet: No (11/02/2016 21:08:Shantel Tovar RN) Pt Requests Rubber Flap Tuber Machine Operator Visit: No (11/02/2016 21:08:Shantel Tovar RN) Hx of Any of the Following?: N/A (11/02/2016 21:08:Shantel Tovar RN) New Diagnosis of: N/A (11/02/2016 21:08:Shantel Tovar RN) Requires Assist w/Ambulation: No (11/02/2016 21:08:Shantel Tovar RN) Uses Assist Device to Ambulate: No (11/02/2016 21:08:Shantel Tovar RN) Pt Requires Help w/ADL's: No (11/02/2016 21:08:Shantel Tovar RN)
--- NOTE | 2016-11-04 06:01 | L&D General Admission ---
General Admit Datetime Report Generated by CPN: 11/04/2016 06:00 INFORMATION Patient Age: 30 (08/06/2016 13:56:QS system process) EDC: 11/20/2016 00:00 (08/06/2016 14:04:Noemí Woodall RN) : 2 (08/06/2016 14:04:Noemí Woodall RN) Para: 1 (10/31/2016 14:14:Carla Ward RN) Term: 1 (08/06/2016 14:04:Noemí Woodall RN) : 0 (08/06/2016 14:04:Noemí Woodall RN) Spontaneous Abortions: 0 (08/06/2016 14:04:Noemí Woodall RN) Induced Abortions: 0 (08/06/2016 14:04:Noemí Woodall RN) Livin (08/06/2016 14:04:Noemí Woodall RN) Cesareans: 0 (08/06/2016 14:04:Noemí Woodall RN) VBACs: 0 (08/06/2016 14:04:Noemí Woodall RN) Ectopic: 0 (08/06/2016 14:04:Noemí Woodall RN) Multiple Births: 0 (08/06/2016 14:04:Noemí Woodall RN) Baby, Number in Womb: 1 (10/31/2016 14:14:Carla Ward RN) CARE Primary Fence Setter: [facility] (08/06/2016 14:04:Noemí Woodall RN) Adequate Care: Yes (08/06/2016 14:04:Noemí Woodall RN) Height (in): 61 (11/03/2016 14:45:QS system process) ALLERGIES Medication Allergy: No (08/06/2016 14:04:Noemí Woodall RN) Medication Allergies: No Known Allergies (11/02/2016) (11/02/2016 21:59:QS system process) Latex Allergy: Latex Allergies (08/06/2016 14:04:Renetta Feldman RN) COMMUNICATION Primary Language: Indonesian (08/06/2016 14:04:Noemí Woodall RN) Medical Tx Preferred Language: Indonesian (08/06/2016 14:04:Noemí Woodall RN) Communication Barrier(s): None (08/06/2016 14:04:Renetta Feldman RN) DEMOGRAPHICS Address: [address] [place] [id number] (08/06/2016 13:56:QS system process) Zipcode: [address] (08/06/2016 13:56:QS system process) Home (08/06/2016 13:56:QS system process) SSN: [id number] (08/06/2016 13:56:QS system process) Next of Kin Name: MICHAEL ARRIAGA (08/06/2016 13:56:QS system process) Next of Kin (08/06/2016 13:56:QS system process) Next of Kin Relationship: SPO (08/06/2016 13:56:QS system process) Date of : 1985 (08/06/2016 13:56:QS system process) Marital Status: (08/06/2016 13:56:QS system process) Sex: Female (08/06/2016 13:56:QS system process) Race: (08/06/2016 13:56:QS system process) Ethnicity: Non- or (08/06/2016 13:56:QS system process) Mormon: Other (08/06/2016 13:56:QS system process) DRUG AND ALCOHOL USE Alcohol: No (08/06/2016 14:04:Noemí Woodall RN) Cigarettes: Former Smoker. [id number] (08/06/2016 14:04:Noemí Woodall RN) Marijuana: No (08/06/2016 14:04:Noemí Woodall RN) Cocaine: No (08/06/2016 14:04:Noemí Woodall RN) Other Illicit Drugs: No (08/06/2016 14:04:Noemí Woodall RN) VACCINE HISTORY Influenza Vaccine: No (08/06/2016 14:04:Noemí Woodall RN) Tetanus Vaccine: No (08/06/2016 14:04:Noemí Woodall RN) Tdap Vaccine: No (08/06/2016 14:04:Noemí Woodall RN) News Agent: Other (08/06/2016 14:04:Noemí Woodall RN) Feeding Preference: Breast (08/06/2016 14:04:Noemí Woodall RN) Benefit of Breast Feed Discussed: Yes (08/06/2016 14:04:Shantel Tovar RN) Circumcision: Yes (08/06/2016 14:04:Noemí Woodall RN) Classes Attended: No (08/06/2016 14:04:January Pimentel RN) Tubal Ligation: No (08/06/2016 14:04:Noemí Woodall RN) Tubal Authorization Signed: N/A (08/06/2016 14:04:Noemí Woodall RN) Consent: N/A (08/06/2016 14:04:Shantel Tovar RN) Pain Management Plans: Epidural (08/06/2016 14:04:Noemí Woodall RN) Support Person: Michael Arriaga (08/06/2016 14:04:Noemí Woodall RN) Support Person Relationship: Significant Other (08/06/2016 14:04:Noemí Woodall RN) Cultural/Spritual Practice: Yes (08/06/2016 14:04:Noemí Woodall RN) Describe Cul/Spir Practice: Rabbi may come to delivery (08/06/2016 14:04:Noemí Woodall RN) Spir/Cult Dietary Needs: No (08/06/2016 14:04:Noemí Woodall RN) LIVING SITUATION/DISCHARGE PLAN Living Arrangements: House (08/06/2016 14:04:Shantel Tovar RN) Adequate Access to:: Electric; Heat; Refrigeration; Plumbing/Running water; Phone; Transportation (08/06/2016 14:04:Shantel Tovar RN) WIC Program: [facility] (08/06/2016 14:04:Shantel Tovar RN) Discharge Supervisor Vacuum Metalizing Person: Michael (08/06/2016 14:04:Shantel Tovar RN) Person to Help after Discharge: Michael (08/06/2016 14:04:Shantel Tovar RN) Currently Using Commun Resources: No (08/06/2016 14:04:Shantel Tovar RN) Outside Agency/Body Die Maker: [facility] (08/06/2016 14:04:Shantel Tovar RN) Car Seat for Discharge: Yes (08/06/2016 14:04:Shantel Tovar RN) Adoption Requested: No (08/06/2016 14:04:Shantel Tovar RN) Pt Contact w/ Post : N/A (08/06/2016 14:04:Shantel Tovar RN) LABS Blood Type: AB Positive (08/06/2016 14:04:Kristi Adams RN) Antibody Screen: negative (08/06/2016 14:04:Kristi Adams RN) Hemoglobin: 10.4 L (11/02/2016 21:19:QS system process) Hematocrit: 30.6 L (11/02/2016 21:19:QS system process) MCV: 78 L (11/02/2016 21:19:QS system process) Group Beta Strep: positive (08/06/2016 14:04:Kristi Adams RN) Gonorrhea: Negative (08/06/2016 14:04:Kristi Adams RN) Chlamydia: Negative (08/06/2016 14:04:Kristi Adams RN) HIV Results: non-reative (08/06/2016 14:04:Kristi Adams RN) Hepatitis B: Negative (08/06/2016 14:04:Kristi Adams RN) Rubella: Immune (08/06/2016 14:04:Kristi dAams RN) Varicella: Non Susceptible (08/06/2016 14:04:Kristi Adams RN) OB/PREVIOUS HISTORY Previous Procedures: Ultrasound (08/06/2016 14:04:Kristi Adams RN) Current Procedures: Ultrasound (08/06/2016 14:04:Kristi Adams RN) History of Previous : No (08/06/2016 14:04:Noemí Woodall RN) History of Gestational Diabetes: No (08/06/2016 14:04:Noemí Woodall RN) History of PIH: No (08/06/2016 14:04:Noemí Woodall RN) History of Incompetent Cervix: No (08/06/2016 14:04:Noemí Woodall RN) History of Placenta Previa/Abrup: No (08/06/2016 14:04:Noemí Woodall RN) History of Macrosomia: No (08/06/2016 14:04:Noemí Woodall RN) History of IUGR: No (08/06/2016 14:04:Noemí Woodall RN) History of Hemorrhage: No (08/06/2016 14:04:Noemí Woodall RN) History of Loss/Stillborn: No (08/06/2016 14:04:Noemí Woodall RN) History of : No (08/06/2016 14:04:Noemí Woodall RN) History of D (Rh) Sensitization: No (08/06/2016 14:04:Noemí Woodall RN) History Recurrent Loss/Stillborn: No (08/06/2016 14:04:Noemí Woodall RN) History Depression/PP Depression: No (08/06/2016 14:04:Noemí Woodall RN) History of Uterine Anomaly/RADHA: No (08/06/2016 14:04:Noemí Woodall RN) History of Infertility: No (08/06/2016 14:04:Noemí Woodall RN) History of ART Treatment: No (08/06/2016 14:04:Noemí Wooadll RN) History of RADHA: No (08/06/2016 14:04:Noemí Woodall RN) Comments Obstetrical History: 2007- Baby boy (08/06/2016 14:04:Shantel Tovar RN) MEDICAL HISTORY Med Hx Diabetes: No (08/06/2016 14:04:Noemí Woodall, KRISTA) Diabetes Type: Gestational Diabetes (08/06/2016 14:04:Kristi Adams RN) Med Hx Hypertension: No (08/06/2016 14:04:Noemí Woodall, KRISTA) Med Hx Heart Disease: No (08/06/2016 14:04:Noemí Woodall, RN) Med Hx Autoimmune Disorder: No (08/06/2016 14:04:Noemí Woodall RN) Med Hx Kidney Disease/UTI: No (08/06/2016 14:04:Noemí Woodall RN) Med Hx Neurologic/Epilepsy: No (08/06/2016 14:04:Noemí Woodall RN) Med Hx Psychiatric Disorders: No (08/06/2016 14:04:Noemí Woodall RN) Med Hx Hepatitis/Liver Disease: No (08/06/2016 14:04:Noemí Woodall RN) Med Hx Varicosities/Phlebitis: No (08/06/2016 14:04:Noemí Woodall RN) Med Hx Thyroid Dysfunction: No (08/06/2016 14:04:Noemí Woodall RN) Med Hx Trauma/Violence: No (08/06/2016 14:04:Noemí Woodall RN) Med Hx Blood Transfusion: No (08/06/2016 14:04:Noemí Woodall RN) Med Hx Pulmonary (Asthma,TB): No (08/06/2016 14:04:Noemí Woodall, KRISTA) Med Hx Breast: No (08/06/2016 14:04:Noemí Woodall RN) Med Hx LIVESTOCK SHOWMAN Surgery: No (08/06/2016 14:04:Noemí Woodall, KRISTA) Med Hx Hospitalization/Surgery: No (08/06/2016 14:04:Noemí Woodall, RN) Med Hx Anesthetic Complications: No (08/06/2016 14:04:Noemí Woodall, KRISTA) Med Hx Abnormal Pap Smear: Yes (08/06/2016 14:04:Noemí Woodall RN) Other Medical Diseases: No (08/06/2016 14:04:Noemí Woodall RN) Med Hx Significant Family Hx: No (08/06/2016 14:04:Noemí Woodall RN) Details of Med/Surg Hx: HPV;GHTN (08/06/2016 14:04:Kristi Adams RN) INFECTIOUS HISTORY Inf Hx Gonorrhea: No (08/06/2016 14:04:Noemí Woodall RN) Inf Hx Chlamydia: No (08/06/2016 14:04:Noemí Woodall RN) Inf Hx Syphilis: No (08/06/2016 14:04:Noemí Woodall RN) Inf Hx HIV/AIDS: No (08/06/2016 14:04:Noemí Woodall RN) Inf Hx Human Papilloma Virus: No (08/06/2016 14:04:Noemí Woodall RN) Inf Hx Pt/Partner Genital Herpes: No (08/06/2016 14:04:Noemí Woodall RN) Inf Hx Tuberculosis/Exposure: No (08/06/2016 14:04:Noemí Woodall RN) Inf Hx Hepatitis B,C: No (08/06/2016 14:04:Noemí Woodall RN) Inf Hx Rash or Viral Illness: No (08/06/2016 14:04:Noemí Woodall RN) GENETIC HISTORY Gen Hx Age >=35 at VOLODYMYR: No (08/06/2016 14:04:Noemí Woodall RN) Gen Hx Thalassemia: No (08/06/2016 14:04:Noemí Woodall RN) Gen Hx Congenital Heart Defect: No (08/06/2016 14:04:Noemí Woodall RN) Gen Hx Neural Tube Defect: No (08/06/2016 14:04:Noemí Woodall RN) Gen Hx Down's Syndrome: No (08/06/2016 14:04:Noemí Woodall RN) Gen Hx Zach-Sachs: No (08/06/2016 14:04:Noemí Woodall RN) Gen Hx Nikita: No (08/06/2016 14:04:Noemí Woodall RN) Gen Hx Familial Dysautonomia: No (08/06/2016 14:04:Noemí Woodall RN) Gen Hx Sickle Cell Disease/Trait: No (08/06/2016 14:04:Noemí Woodall RN) Gen Hx Hemophilia/Blood Disorder: No (08/06/2016 14:04:Noemí Woodall RN) Gen Hx Muscular Dystrophy: No (08/06/2016 14:04:Noemí Woodall RN) Gen Hx Cystic Fibrosis: No (08/06/2016 14:04:Noemí Woodall RN) Gen Hx Huntingtons Chorea: No (08/06/2016 14:04:Noemí Woodall RN) Gen Hx Mental Retardation/Autism: Yes (08/06/2016 14:04:Kristi Adams RN) Gen Hx Tested for Fragile X: No (08/06/2016 14:04:Noemí Woodall RN) Gen Hx Other Inher/Chromosomal: No (08/06/2016 14:04:Noemí Woodall RN) Gen Hx Maternal Metabolic DO: No (08/06/2016 14:04:Noemí Woodall RN) Gen Hx Pt Father or FOB Defect: No (08/06/2016 14:04:Noemí Woodall RN) Gen Hx Other Genetic History: No (08/06/2016 14:04:Noemí Woodall RN) Gen Hx Drugs/Meds since LMP: No (08/06/2016 14:04:Noemí Woodall RN) Details of Genetic History: Autism- sister (08/06/2016 14:04:Nomeí Woodall RN)
--- NOTE | 2016-11-04 06:15 | L&D Care Plan ---
LD CARE PLANS Datetime Report Generated by CPCamila: 11/04/2016 06:15 Datetime: 11/02/2016 21:38 State: Risk For (Renetta Feldman RN) Related To: Labor and Delivery Process; Surgical Procedure; Complication(s) of ; Disease Process; Treatment and Procedures; Post (Renetta Feldman RN) Goal(s): Patients Pain will be Assessed and Managed; Patient will Verbalize Adequate Relief of Pain or the Ability to [place] with Current Pain (Renetta Feldman RN) Interventions: Assess Pain Severity on Scale of 0 (None) to 5 (Severe); Assess Type, Location and Intensity of Pain Each Time Client Reports Discomfort and Notify Provider if Unusal Pain Develops; Offer Alternatives Such as Repositioning, Calm Environment, Massages, Diversional Activities, Ice Pack, Splinting, and Ambulation; Administer Analgesics as Ordered; Assist with Epidural Placement as Appropriate; Evaluate Therapeutic Effectiveness of Medication and Treatments (Renetta Feldman RN) Outcome: Patient will Report Absence or Relief of Pain Consistent with Established Pain Goal (Renetta Feldman RN) Status: Ongoing (Renetta Feldman RN) Outcome: Patient will have a Decrease in Signs and Symptoms of Discomfort (Renetta Feldman RN) Status: Ongoing (Renetta Feldman RN) Status: Ongoing (Renetta Feldman RN) State: Risk For (Renetta Feldman RN) Related To: Labor and Delivery Process; Surgical Procedure; Perceived or Actual Threat to ; Fear of Unknown; Situational Crisis; Medical Interventions; Significant Life Event (Renetta Feldman RN) Goal(s): Patient will have Decreased Anxiety and be able to Function at Acceptable Levels (Renetta Feldman RN) Interventions: Assess Verbal and Nonverbal Behavioral Indicators of Anxiety; Assist Patient to Identify and Verbalize Symptoms of Anxiety; Identify and Demonstrate Techniques to Control Anxiety; Assist Patient with Coping Mechanisms to Manage Anxiety; Provide Theraputic Touch for the Patient; Explain to Patient, Using a Calm Reassuring Approach and Nonmedical Terms, All Activities, Procedures, and Concerns; Instruct Patient and Family about Post Discharge Care, Limitations, Symptoms to Report and Resources Available (Renetta Feldman RN) Outcome: Patient will Identify, Verbalize and Demonstrate Techniques to Control Anxiety (Renetta Feldman RN) Status: Ongoing (Renetta Feldman RN) Outcome: Patient's Posture, Facial Expressions, Gestures and Activity Level will Reflect Decreased Anxiety (Renetta Feldman RN) Status: Ongoing (Renetta Feldman RN) Outcome: Patient will Verbalize a Sense of Control and/or Acceptance of the Situation (Renetta Feldman RN) Status: Ongoing (Renetta Feldman RN) Outcome: Patient will Identify and Utilize Support Person (Renetta Feldman RN) Status: Ongoing (Renetta Feldman RN) State: Risk For (Shantel Tovar RN) Related To: Labor and Delivery Process; Surgical Procedures; Treatment and Procedures; Impending Alterations in Family Dynamics; Feeding and Infant Care; Community Resources and Available Support Mechanisms (Renetta Feldman RN) Goal(s): Patient will Accurately Verbalize Understanding of Plan of Care and Treatment; Patient and Family will Accurately Verbalize Understanding of the Disease Process (Renetta Feldman RN) Interventions: Assess Motivation and Willingness of Patient/Family to Learn; Assess Preferred Learning Mode: One to One Instruction, Reading, Videos, Group Discussion or Demonstration; Assess Barriers to Learning: Pain, Emotional State, Language Barrier, Cognitive Impairment, Visual or Hearing Deficits; Assess Patient and Family Knowledge of Disease Process, Medications and Treatment; Discuss Therapy and/or Treatment Options, Describe Rationale Behind Management, Therapy and Treatment Recommendations; Instruct Patient and Family on Signs and Symptoms to Report; Instruct Patient and Family on Medication Effects and Side Effects; Provide Appropriate and Timely Education Using Multiple Techniques; Provide Patient and Family with Support Group Information and Resources; Give Clear and Thorough Explanations and Demonstrations (Renetta Feldman RN) Outcome: Patient and Family will Verbalize Understanding of Condition, Treatment and Signs and Symptoms to Report (Renetta Feldman RN) Status: Ongoing (Renetta Feldman RN) Outcome: Patient will Identify Perceived Learning Needs and Express Motivation to Learn (Renetta Feldman RN) Status: Ongoing (Renetta Feldman RN) Outcome: Patient will Verbalize Understanding of Desired Content, and/or Performs Desired Skill Prior to Discharge (Renetta Feldman RN) Status: Ongoing (Renetta Feldman RN) State: Risk For (Shantel Tovar RN) Related To: Prolonged Labor or Induction; Invasive Procedures (Shantel Tovar RN) Goal(s): The Patient will be Free of Infection, Vital Signs Stable and Lab Work within Normal Parameters (Shantel Tovar RN) Interventions: Instruct and Reinforce Proper Handwashing, Hygiene, and Care Techniques to Patient and Family; Monitor Vital Signs; Monitor Patient for the Following Signs of Infection: Fever, Abdominal Tenderness, Unusual Discharge; Monitor Aminiotic Fluid, Urine and Lochia for Color and Odor; Observe Wounds, Incisions and Invasive Line Sites for Redness, Drainage and Edema; Assess IV Sites per Hospital Policy; Monitor Lab and Test Results and Notify Provider of Abnormal Findings; Assess Nutritional Status and Promote Good Nutrition (Shantel Tovar RN) Outcome: Patient will Remain Free of Infection (Shantel Tovar RN) Status: Ongoing (Shantel Tovar RN) Outcome: Infection will be Recognized Early to Allow for Prompt Treatment (Shantel Tovar RN) Status: Ongoing (Shantel Tovar RN) Outcome: Patient will have Vital Signs Within Expected Range (Shantel Tovar RN) Status: Ongoing (Shantel Tovar RN) State: Risk For (Shantel Tovar RN) Related To: Gestational Hypertension; Surgical Procedures; Prolonged Labor or Induction; Hemorrhage; Disease Process; Anesthesia; Altered Renal Function (Shantel Tovar RN) Goal(s): Patient will Achieve and Maintain a Balanced Fluid Volume Status; Hemodynamically Stable (Shantel Tovar RN) Interventions: Monitor Vital Signs; Auscultate Breath Sounds; Monitor Patient for Skin Turgor, Mucous Membranes, Dry Skin, Weakness, Headaches and Confusion; Provide Oral Fluids as Ordered; Initiate and Maintain Intravenous Fluids as Ordered; Monitor Intake and Output as Indicated Per Patient Status; Accurately Measure Blood Loss; Monitor Lab and Test Results as Obtained and Notify Provider of Abnormal Findings; Monitor Patient's Weight (Shantel Tovar RN) Outcome: Patient will have Clear Lung Sounds (Shantel Tovar RN) Status: Ongoing (Shantel Tovar RN) Outcome: Patient will have Vital Signs within Expected Range (Shnatel Tovar RN) Status: Ongoing (Shantel Tovar RN) Outcome: Urine Output will be within Expected Range (Shantel Tovar RN) Status: Ongoing (Shantel Tovar RN) Outcome: Patient will have Minimal Generalized or Upper Extremity Edema (Shantel Tovar RN) Status: Ongoing (Shantel Tovar RN) State: Risk For (Shantel Tovar RN) Related To: Labor and Delivery Process; Gestational Hypertension or Eclampsia; Anesthesia; Altered Coagulation; Risk to Status; Uteroplacental Perfusion; Decreased Mobility; Hemorrhage, Placenta Previa and or Placental Abruption; Uterine Rupture (Shantel Tovar RN) Goal(s): Patient will Remain Free from Injury (Shantel Tovar RN) Interventions: Monitoring as per Hospital Protocol; Assess Neurological Status; Perform Risk Assessment of Patients with Induction and ; Perform Fall Risk Assessment and Prevention per Hospital Protocol; Perform DVT Risk Assessment and Prophylaxis per Hospital Protocol; Ensure that Oxygen, Suction, and Resuscitation Medications and Equipment are Readily Available; Confirm Patient ID Prior to Procedure(s) and Medication Administration per Hospital Policy (Shatnel Tovar RN) Outcome: Successful Fall Risk Prevention (Shantel Tovar RN) Status: Ongoing (Shantel Tovar RN) Outcome: Patient will Deliver Infant without Adverse Sequela (Shantel Tovar RN) Status: Ongoing (Shantel Tovar RN) Outcome: Patient's Neurological Status will Remain Stable (Shantel Tovar RN) Status: Ongoing (Shantel Tovar RN) State: Risk For (Shantel Tovar RN) Related To: Vaginal Delivery (Shantel Tovar RN) Goal(s): Patient will Maintain Optimal Skin Integrity, Free of Breakdown, Injury or Infection (Shantel Tovar RN) Interventions: Complete Screening for Pressure Ulcer Risk and Initiate Protocol per Hospital Policy; Monitor Site of Skin Impairment for Color Changes, Redness, Swelling, Warmth, Pain or Other Signs of Infection; Encourage and Assist with Position Changes; Monitor Patient's Mobility Status; Provide Adequate Nutrition and Fluids; Teach Patient Appropriate Hygienic Care; Teach Patient/Family Skin Care Management (Shantel Tovar RN) Outcome: Patient will not have Evidence of Injury Such as Skin Breakdown, Scrapes, Cuts, or Bruising (Shantel Tovar RN) Status: Ongoing (Shantel Tovar RN) Outcome: Patient will Report Any Altered Sensation or Pain at Site of Skin Impairment (Shantel Tovar RN) Status: Ongoing (Shantel Tovar RN) Outcome: Patients Incisions and Wounds will be without Signs or Symptoms of Infection (Shantel Tovar RN) Status: Ongoing (Shantel Tovar RN) Outcome: Patient will Demonstrate Understanding of Plan to Heal Skin and Prevent Reinjury and Verbalize Risk Factors (Shantel Tovar RN) Status: Ongoing (Shantel Tovar RN)
[2016-11-04 07:28] LABS: HEMATOCRIT 31.4 % (36.0-47.0); HEMOGLOBIN 10.5 g/dL (12.0-15.5); HGB HCT DIFFERENCE 0.1; MEAN CORPUSCULAR HEMOGLOBIN 26.3 pg (27.0-33.4); MEAN CORPUSCULAR HGB CONC 33.3 g/dL (32.0-36.0); MEAN CORPUSCULAR VOLUME 79 fl (80-97); RED BLOOD COUNT 3.98 10^6/uL (3.72-5.28); RED CELL DISTRIBUTION WIDTH 14.3 % (11.5-14.0); WHITE BLOOD COUNT 10.4 10^3/uL (4.0-10.5)
--- NOTE | 2016-11-04 09:29 | PDOC PROGRESS REPORT ---
Subjective-OB Subjective: Post Delivery Day: 31 year old. Denies any needs at this time Doing well, holding baby, family in room, eating well, mild cramping with , scant lochia Physical Exam (OB) Vital Signs: Temp Pulse Resp BP Pulse Ox 98.1 F 84 16 126/92 H 99 11/04/16 07:50 11/04/16 07:50 11/04/16 07:50 11/04/16 07:50 11/04/16 07:50 Intake & Output 11/03/16 11/04/16 11/05/16 06:59 06:59 06:59 Weight 71.75 kg - PIH/Pre-Eclampsia DTR's: 1 + Clonus: Negative Headache: Absent Epigastric Pain: No Visual Changes: No - Lochia Lochia Amount: Scant < 10 ml Lochia Color: Rubra/Red - Abdomen Description: Soft, Round Hernia Present: No Fundal Description: Firm, Midline Fundal Height: u/u - u/2 Objective-Diagnostic Laboratory: 11/04/16 07:21 11/03/16 11/04/16 12:01 07:21 WBC 10.4 RBC 3.98 Hgb 10.5 L Hct 31.4 L MCV 79 L MCH 26.3 L MCHC 33.3 RDW 14.3 H Plt Count 145 L Carbonic Acid 1.21 HCO3/H2CO3 Ratio 16:1 ABG pH 7.31 L ABG pCO2 40.1 ABG pO2 20.4 L* ABG HCO3 19.7 L ABG O2 Saturation 29.2 L ABG Base Excess -6.0 FiO2 CORD BLOOD Assessment and Plan(PN) - Assessment and Plan (1) Gestational diabetes Qualifiers: Gestational diabetes mellitus control: diet-controlled Is this a current diagnosis for this admission?: Yes (2) Gestational [-induced] hypertension without significant proteinuria , third trimester Is this a current diagnosis for this admission?: Yes - Time Spent with Patient Time with patient: Less than 15 minutes Medications reviewed and adjusted accordingly: Yes - Disposition Anticipated Discharge: Home Within: within 24 hours
[2016-11-04] MEDS: PRENATAL VITAMIN W-O CA NO5/FE FUMARATE/FA CAPSULE PO SCH (10:10)
[2016-11-04] MEDS: FAMOTIDINE 20 MG TABLET PO SCH ×2 (10:11→21:08)
[2016-11-04] MEDS: DOCUSATE SODIUM 100 MG CAPSULE PO SCH ×2 (10:12→18:25)
[2016-11-04] MEDS: SENNOSIDES/DOCUSATE 8.6-50 MG 1 EACH TABLET PO SCH (10:12)
[2016-11-04] MEDS: FERROUS SULFATE 325 MG TABLET PO SCH ×2 (10:13→18:25)
[2016-11-04] MEDS: ACETAMINOPHEN WITH CODEINE #3 TABLET PO PRN (14:54)
[2016-11-05] MEDS: ACETAMINOPHEN WITH CODEINE #3 TABLET PO PRN (01:06)
[2016-11-05] MEDS: IBUPROFEN 800 MG TABLET PO SCH (05:53)
--- NOTE | 2016-11-05 09:12 | PDOC PROGRESS REPORT ---
Subjective-OB Subjective: Post Delivery Day: 31 year old. Denies any needs at this time Doing well, no c/o, sad baby will probably have to stay a little longer, scant lochia, ambulating, breast feeding, voiding, hsb at BS Physical Exam (OB) Vital Signs: Temp Pulse Resp BP Pulse Ox 97.8 F 75 18 136/88 H 98 11/05/16 08:38 11/05/16 08:38 11/05/16 08:38 11/05/16 08:38 11/05/16 08:38 Intake & Output 11/04/16 11/05/16 11/06/16 06:59 06:59 06:59 Intake Total 480 Balance 480 - PIH/Pre-Eclampsia DTR's: 2 + Clonus: Negative Headache: Absent Epigastric Pain: No Visual Changes: No - Lochia Lochia Amount: Scant < 10 ml Lochia Color: Rubra/Red - Abdomen Description: Tender, Soft, Round Hernia Present: No Fundal Description: Firm, Midline Fundal Height: u/u - u/2 Objective-Diagnostic Laboratory: 11/04/16 07:21 Assessment and Plan(PN) - Assessment and Plan (1) Gestational diabetes Qualifiers: Gestational diabetes mellitus control: diet-controlled Is this a current diagnosis for this admission?: Yes (2) Gestational [-induced] hypertension without significant proteinuria , third trimester Is this a current diagnosis for this admission?: Yes - Time Spent with Patient Time with patient: Less than 15 minutes Medications reviewed and adjusted accordingly: Yes - Disposition Anticipated Discharge: Home Within: Other - home today
[2016-11-05 09:13] VITALS: BP 135/95
[2016-11-05] MEDS: DOCUSATE SODIUM 100 MG CAPSULE PO SCH (09:15)
[2016-11-05] MEDS: PRENATAL VITAMIN W-O CA NO5/FE FUMARATE/FA CAPSULE PO SCH (09:15)
[2016-11-05] MEDS: SENNOSIDES/DOCUSATE 8.6-50 MG 1 EACH TABLET PO SCH (09:15)
[2016-11-05] MEDS: FAMOTIDINE 20 MG TABLET PO SCH (09:15)
--- NOTE | 2016-11-05 09:15 | PDOC DISCHARGE SUMMARY ---
Final Diagnosis Discharge Date: 11/05/16 - Final Diagnosis (1) Gestational diabetes Is this a current diagnosis for this admission?: Yes (2) Gestational [-induced] hypertension without significant proteinuria , third trimester Is this a current diagnosis for this admission?: Yes Discharge Data - Discharge Medication Home Medications: Ondansetron HCl [Zofran] 4 mg PO PRN PRN 08/06/16 Pnv No.122/Iron/Folic Acid [ Multi Tablet] 1 each PO DAILY 10/24/16 Gestational Age: 37.4 Reason(s) for Admission: Induction of Labor Procedures: NST, Ultrasound Intrapartum Procedure(s): Spontaneous Vaginal Delivery Complication(s): Laceration-Periurethral - Data Baby 1 Male at 1 minute: 8 at 5 minutes: 8 Weight: 3.005 kg Home with Mother: No Complications: Yes - retractions that has resolved, waiting for cultures - Diagnosis Test Laboratory: Temp Pulse Resp BP Pulse Ox 97.8 F 75 18 136/88 H 98 11/05/16 08:38 11/05/16 08:38 11/05/16 08:38 11/05/16 08:38 11/05/16 08:38 11/02/16 11/02/16 11/04/16 20:40 21:19 07:21 RBC 3.93 3.98 Hgb 10.4 L 10.5 L Hct 30.6 L 31.4 L Urine Opiates Screen NEGATIVE - Discharge information/Instructions Discharge Activity: Activity As Tolerated, Pelvic Rest, No tub bath Discharge Diet: As Tolerated, Regular Disposition: HOME, SELF-CARE Follow up with: [facility] in: 1, Weeks
[2016-11-05] MEDS: FERROUS SULFATE 325 MG TABLET PO SCH (09:17)
== END 2016-11-05 12:54 | disposition home or self-care (01) | DRG 775 ==
LOC: LR 20:18 → 2S 11-03 14:30
PROVIDERS: ADMIT Obstetrics & Gynecology; ATTEND Obstetrics & Gynecology
PROC: 4A1HXCZ Monitoring of Products of Conception, Cardiac Rate, External Approach (ICD-10-PCS; 2016-11-02)
PROC: 10E0XZZ Delivery of Products of Conception, External Approach (ICD-10-PCS; principal; 2016-11-03)
PROC: 0UQMXZZ Repair Vulva, External Approach (ICD-10-PCS; 2016-11-03)
PROC: 3E0P7GC Introduction of Other Therapeutic Substance into Female Reproductive, Via Natural or Artificial Opening (ICD-10-PCS; 2016-11-03)
DX: O24.420 Gestational diabetes mellitus in childbirth, diet controlled (principal); O32.6XX0 Maternal care for compound presentation, not applicable or unspecified; O71.82 Other specified trauma to perineum and vulva; O99.824 Streptococcus B carrier state complicating childbirth; O13.4 Gestational [pregnancy-induced] hypertension without significant proteinuria, complicating childbirth; Z87.891 Personal history of nicotine dependence; Z3A.37 37 weeks gestation of pregnancy; Z37.0 Single live birth
CPT/HCPCS: 36415; 80307; 81005; 82803; 85025; 85027; 86592; 86850; 86900; 86901; 88307; 90715; J2300; J2540; J2550; J2590; J3490; S0119

== ENCOUNTER 2017-03-03 05:33 | Day surgery (SDC) | payer MEDICAID ==
[2017-03-02 11:03] LABS: APPEARANCE,URINE CLEAR; BILIRUBIN,URINE NEGATIVE (NEGATIVE); GLUCOSE, URINE NEGATIVE (NEGATIVE); KETONES,URINE NEGATIVE (NEGATIVE); LEUKOCYTE ESTERASE,URINE TRACE (NEGATIVE); NITRITE,URINE NEGATIVE (NEGATIVE); PROTEIN,URINE NEGATIVE (NEGATIVE); URINE SPECIFIC GRAVITY 1.008; UROBILINOGEN,URINE NEGATIVE mg/dL (<2.0)
[2017-03-02 11:15] LABS: HEMATOCRIT 42.6 % (36.0-47.0); HEMOGLOBIN 14.2 g/dL (12.0-15.5); MEAN CORPUSCULAR HEMOGLOBIN 28.5 pg (27.0-33.4); MEAN CORPUSCULAR HGB CONC 33.4 g/dL (32.0-36.0); MEAN CORPUSCULAR VOLUME 85 fl (80-97); RED CELL DISTRIBUTION WIDTH 14.3 % (11.5-14.0); WHITE BLOOD COUNT 5.6 10^3/uL (4.0-10.5)
[~2017-03-03 05:33] MED LIST: LACTATED RINGERS 1000 ML IV PRN; LIDOCAINE 0.5% INJ-PF (5 MG/ML) 50 ML SDV SUBCUT PRN
[2017-03-03] MEDS ORDERED: ACETAMINOPHEN 100 ML IV ONE (09:29)
[2017-03-03] MEDS ORDERED: HYDROMORPHONE HCL INJ/PF 2 MG/ML AMPULE ONE (09:29)
[2017-03-03] MEDS ORDERED: PROPOFOL INJ 200 MG/20 ML VIAL IV ONE (09:29)
[2017-03-03] MEDS ORDERED: MIDAZOLAM 2 MG/2 ML INJ ONE (09:29)
[2017-03-03] MEDS ORDERED: FENTANYL CITRATE INJ/PF 250 MCG/5 ML AMPULE ONE (09:43)
[2017-03-03] MEDS ORDERED: FENTANYL CITRATE INJ/PF 100 MCG/2 ML AMPUL IV PRN ×3 (10:08)
[2017-03-03] MEDS ORDERED: PROMETHAZINE HCL INJ 25 MG/1 ML VIAL IV PRN ×2 (10:08)
[2017-03-03] MEDS ORDERED: MEPERIDINE HCL/PF INJ 25 MG/1 ML DISP.SYRIN IV PRN (10:08)
[2017-03-03] MEDS ORDERED: MORPHINE SULFATE 10 MG/ML INJ IV PRN (10:08)
[2017-03-03] MEDS ORDERED: DIPHENHYDRAMINE HCL 50 MG/ML VIAL IV PRN (10:08)
[2017-03-03] MEDS ORDERED: OXYCODONE-ACETAMINOPHEN 5-325 MG TABLET PO PRN ×4 (10:08→10:57)
--- NOTE | 2017-03-03 10:42 | Operative Report ---
Operative Report DATE OF SURGERY: 03/03/17 PREOPERATIVE DIAGNOSIS: Desires surgical sterility POSTOPERATIVE DIAGNOSIS: Same OPERATION: Laparoscopic removal of both fallopian tubes SURGEON: MARY PABLO ANESTHESIA: GA TISSUE REMOVED OR ALTERED: Fallopian tubes COMPLICATIONS: None ESTIMATED BLOOD LOSS: None INTRAOPERATIVE FINDINGS: Normal female pelvis PROCEDURE: Patient was taken back to the OR placed in supine position. General anesthesia was induced. Patient was placed in dorsolithotomy position using Collin stirrups. The abdomen perineum and vagina were prepared and draped in sterile fashion. The bladder was drained with red rubber catheter. An incision was made at the umbilicus and the natural umbilical defect was identified and dilated with a Meme clamp allowing a 5 mm port to be placed bluntly. Laparoscopy confirmed appropriate placement. The abdomen was then insufflated with CO2 gas. A suprapubic port was placed under laparoscopic visualization and a left lateral port placed under laparoscopic visualization. Using a grasper and LigaSure device each fallopian tube was removed. Tube was passed off the field for specimen. The tubal sites were hemostatic bilaterally. There was no evidence of any injury. At this point the ports were removed and the gas was allowed to escape from the abdomen. Fascia at the umbilicus was closed with a 2-0 Vicryl suture and the 3 port sites were closed with 4-0 undyed Vicryl suture. The patient was extubated and taken to recovery room in stable condition.
[2017-03-03] MEDS ORDERED: ONDANSETRON HCL INJ/PF 4 MG/2 ML SDV ONE ×2 (11:08→11:47)
[2017-03-03] MEDS ORDERED: KETOROLAC TROMETHAMINE INJ/PF 30 MG/1 ML SDV ONE (11:13)
[2017-03-03] MEDS ORDERED: IBUPROFEN 800 MG TABLET PO PRN (11:15)
[2017-03-03] MEDS ORDERED: KETOROLAC TROMETHAMINE INJ/PF 30 MG/1 ML SDV IV PRN (11:15)
[2017-03-03] MEDS ORDERED: PROMETHAZINE HCL INJ 50 MG/1 ML VIAL IM ONE (11:45)
[2017-03-03] MEDS ORDERED: ROCURONIUM BROMIDE INJ 50 MG/5 ML VIAL IV ONE (11:47)
[2017-03-03] MEDS ORDERED: DEXAMETHASONE SOD PHOSPHATE INJ 4 MG/1 ML VIAL ONE (11:47)
[2017-03-03] MEDS ORDERED: SUCCINYLCHOLINE CHLORIDE INJ 200 MG/10 ML VIAL ONE (11:47)
[2017-03-03] MEDS ORDERED: NEOSTIGMINE METHYLSULFATE 10 MG/10 ML VIAL ONE (11:47)
[2017-03-03] MEDS ORDERED: METOCLOPRAMIDE HCL INJ/PF 10 MG/2 ML SDV ONE (11:47)
[2017-03-03] MEDS ORDERED: LIDOCAINE 2% INJ-PF (20 MG/ML) 10 ML AMPUL ONE (11:47)
[2017-03-03] MEDS ORDERED: GLYCOPYRROLATE INJ 0.4 MG/2 ML VIAL ONE (11:47)
[2017-03-03] MEDS ORDERED: SCOPOLAMINE HYDROBROMIDE 1.5 MG PATCH.TD72 ONE (13:23)
[2017-03-03 14:41] VITALS: BP 128/94
== END 2017-03-03 13:55 | disposition home or self-care (01) ==
LOC: OROUT 05:33
PROVIDERS: ATTEND Obstetrics & Gynecology
PROC: 0UT74ZZ Resection of Bilateral Fallopian Tubes, Percutaneous Endoscopic Approach (ICD-10-PCS; principal; 2017-03-03 09:30)
DX: Z30.2 Encounter for sterilization (principal); N83.8 Other noninflammatory disorders of ovary, fallopian tube and broad ligament; J45.909 Unspecified asthma, uncomplicated; Z87.891 Personal history of nicotine dependence
CPT/HCPCS: 36415; 85027; 81005; 81025; 88302 ×2; 58661; J2250; J3490 ×4; J1100; J3010; J1885; J2765; J1170; J2550; J0330; J2405; J2704; J0131; 840

== ENCOUNTER 2018-12-03 14:11 | Emergency (ER) | payer BC, MEDICAID ==
[2018-12-03] MEDS ORDERED: ASPIRIN 81 MG TABLET, CHEWABLE PO ONE (15:42)
--- NOTE | 2018-12-03 15:44 | ER Document Report ---
Addendum entered and electronically signed by PAM JI NP 12/03/18 17:54: Course - Re-evaluation Re-evalutation: 12/03/18 17:54 VITAL SIGNS RETAKEN PER PATIENT REQUEST 144/113, 100%, 74 Dr Betts aware - Vital Signs Vital signs: Temp Pulse Resp BP Pulse Ox 98.4 F 74 17 130/96 H 100 12/03/18 14:44 12/03/18 14:44 12/03/18 14:44 12/03/18 14:44 12/03/18 14:44 - Laboratory Result Diagrams: 12/03/18 16:06 12/03/18 16:06 Laboratory results interpreted by me: 12/03/18 16:06 Calcium 10.4 H Original Note: ED Medical Screen (RME) - General Chief Complaint: Chest Pain Stated Complaint: CHEST PAIN, BLOOD PRESSURE ISSUE Time Seen by Provider: 12/03/18 15:42 Primary Care Provider: NAVI ANGEL MD [Primary Care Provider] - Follow up as needed TRAVEL OUTSIDE OF THE [place] IN LAST 30 DAYS: No - HPI Patient complains to provider of: Chest pain, headache Onset: Just prior to arrival Notes: 12/03/18 15:43 Patient is a 33-year-old female with a history of hypertension presenting to the emergency room complaining of chest pain and headache as well as elevated blood pressure, she has not missed any doses of her blood pressure medication, reports slight nausea as well, denies current RAPID MEDICAL EVALUATION DISCLOSURE I have seen this patient as part of a Rapid Medical Evaluation and, if applicable, placed any initially appropriate orders. The patient will be seen and fully evaluated, including a full history and physical exam, by a provider (in Main ED or Fast Track) when a room becomes available. - Related Data Allergies/Adverse Reactions: No Known Allergies Allergy (Verified 12/03/18 14:15) Past Medical History - Past Medical History Cardiac Medical History: Reports: Hx Hypertension - GESTATIONAL HTN ONLY Denies: Hx Coronary Artery Disease, Hx Heart Attack Pulmonary Medical History: Denies: Hx Asthma, Hx Bronchitis, Hx COPD, Hx Pneumonia Neurological Medical History: Denies: Hx Cerebrovascular Accident, Hx Seizures Musculoskeltal Medical History: Denies Hx Arthritis - Immunizations Hx Diphtheria, Pertussis, Tetanus Vaccination: - UNSURE Physical Exam - Vital signs Vitals: Temp Pulse Resp BP Pulse Ox 98.4 F 74 17 130/96 H 100 12/03/18 14:44 12/03/18 14:44 12/03/18 14:44 12/03/18 14:44 12/03/18 14:44 Course - Vital Signs Vital signs: Temp Pulse Resp BP Pulse Ox 98.4 F 74 17 130/96 H 100 12/03/18 14:44 12/03/18 14:44 12/03/18 14:44 12/03/18 14:44 12/03/18 14:44 Doctor's Discharge - Discharge Referrals: NAVI ANGEL MD [Primary Care Provider] - Follow up as needed
--- NOTE | 2018-12-03 16:27 | RADIOLOGY REPORT (SQ) ---
EXAM DESCRIPTION: CHEST 2 VIEWS COMPLETED DATE/TIME: 12/03/2018 4:22 pm REASON FOR STUDY: chest pain COMPARISON: None. EXAM PARAMETERS: NUMBER OF VIEWS: two views TECHNIQUE: Digital Frontal and Lateral radiographic views of the chest acquired. RADIATION DOSE: NA LIMITATIONS: none FINDINGS: LUNGS AND PLEURA: No opacities, masses or pneumothorax. No pleural effusion. MEDIASTINUM AND HILAR STRUCTURES: No masses or contour abnormalities. HEART AND VASCULAR STRUCTURES: Heart normal size. No evidence for failure. BONES: No acute findings. HARDWARE: None in the chest. OTHER: No other significant finding. IMPRESSION: NO ACUTE RADIOGRAPHIC FINDING IN THE CHEST. TECHNICAL DOCUMENTATION: JOB ID: [id number] [employer]- All Rights Reserved Reading location - IP/workstation name: [email or web address]
[2018-12-03 16:32] LABS: ABSOLUTE EOSINOPHILS # (AUTO) 0.3 10^3/uL (0.0-0.6); ABSOLUTE LYMPHOCYTES (AUTO) 2.7 10^3/uL (0.5-4.7); ABSOLUTE MONOCYTES (AUTO) 0.7 10^3/uL (0.1-1.4); ABSOLUTE NEUT (AUTO) 3.9 10^3/uL (1.7-8.2); BASOPHILS % (AUTO) 0.4 % (0-2); EOSINOPHILS % (AUTO) 4.2 % (0-6); HEMATOCRIT 41.5 % (36.0-47.0); HEMOGLOBIN 14.5 g/dL (12.0-15.5); LYMPHOCYTES % (AUTO) 35.3 % (13-45); MEAN CORPUSCULAR VOLUME 89 fl (80-97); MONOCYTES % (AUTO) 8.7 % (3-13); PLATELET COUNT 215 10^3/uL (150-450); RED BLOOD COUNT 4.68 10^6/uL (3.72-5.28); RED CELL DISTRIBUTION WIDTH 13.7 % (11.5-14.0); SEGMENTED NEUTROPHILS % (AUTO) 51.4 % (42-78); TOTAL CELLS COUNTED % (AUTO) 100 %; WHITE BLOOD COUNT 7.7 10^3/uL (4.0-10.5)
[2018-12-03 16:56] LABS: ALANINE AMINOTRANSFERASE 33 U/L (9-52); ALBUMIN 4.8 g/dL (3.5-5.0); ALKALINE PHOSPHATASE 56 U/L (38-126); ANION GAP 10 (5-19); ASPARTATE AMINO TRANSFERASE 26 U/L (14-36); BILIRUBIN,DIRECT 0.2 mg/dL (0.0-0.4); BILIRUBIN,TOTAL 0.7 mg/dL (0.2-1.3); BLOOD UREA NITROGEN 9 mg/dL (7-20); CALCIUM 10.4 mg/dL (8.4-10.2); CARBON DIOXIDE 26 mmol/L (22-30); CHLORIDE 104 mmol/L (98-107); CREATINE KINASE 36 U/L (30-135); GLUCOSE 86 mg/dL (75-110); POTASSIUM 4.3 mmol/L (3.6-5.0); SODIUM 139.5 mmol/L (137-145)
[2018-12-03 17:14] LABS: CREATINE KINASE MB < 0.22 ng/mL (<4.55); TROPONIN I < 0.012 ng/mL
[2018-12-03] MEDS ORDERED: LISINOPRIL 10 MG TABLET PO ONE (21:08)
--- NOTE | 2018-12-03 21:14 | ER Document Report ---
ED General - General Chief Complaint: Chest Pain Stated Complaint: CHEST PAIN, BLOOD PRESSURE ISSUE Time Seen by Provider: 12/03/18 15:42 Primary Care Provider: NAVI ANGEL MD [ACTIVE STAFF] - Follow up as needed Notes: Patient is a 33-year-old female with a past medical history of essential hypertension who presents with multiple complaints. The patient's first complaint is that she has a very high blood pressure which she noted at work she began to develop a pulsing, throbbing pain behind her bilateral eyes with a diffuse headache. She states that her blood pressures were over 200 systolic and she attributes the pulsating sensation behind her eyes and her headache due to this blood pressure. States that she also felt somewhat lightheaded and dizzy and also had chest pain during this episode. Has had chest pain recurrently in the past but states that it felt somewhat different today. Upon arrival to the emergency room she does state that she feels overall much better than previous without any intervention. She does take metoprolol and as needed clonidine for her blood pressure. She denies any current chest pain. Denies any history of DVT or pulmonary embolus. Denies any history of cardiac disease. At the time of my evaluation she denies any acute symptoms. TRAVEL OUTSIDE OF THE [place] IN LAST 30 DAYS: No - Related Data Allergies/Adverse Reactions: No Known Allergies Allergy (Verified 12/03/18 14:15) Past Medical History - General Information source: Patient - Social History Smoking Status: Current Every Day Smoker Frequency of alcohol use: Social Drug Abuse: None Lives with: Spouse/Significant other Family History: Reviewed & Not Pertinent Patient has suicidal ideation: No Patient has homicidal ideation: No - Past Medical History Cardiac Medical History: Reports: Hx Hypertension - GESTATIONAL HTN ONLY Denies: Hx Coronary Artery Disease, Hx Heart Attack Pulmonary Medical History: Denies: Hx Asthma, Hx Bronchitis, Hx COPD, Hx Pneumonia Neurological Medical History: Denies: Hx Cerebrovascular Accident, Hx Seizures Renal/ Medical History: Denies: Hx Peritoneal Dialysis Musculoskeletal Medical History: Denies Hx Arthritis Past Surgical History: Reports: Hx Tubal Ligation - Immunizations Hx Diphtheria, Pertussis, Tetanus Vaccination: - UNSURE Review of Systems - Review of Systems Notes: Constitutional: Negative for fever. HENT: Negative for sore throat. Eyes: Negative for visual changes. Cardiovascular: Positive for chest pain. Respiratory: Negative for shortness of breath. Gastrointestinal: Negative for abdominal pain, vomiting or diarrhea. Genitourinary: Negative for dysuria. Musculoskeletal: Negative for back pain. Skin: Negative for rash. Neurological: Positive for headache 10 point ROS negative except as marked above and in HPI. Physical Exam - Vital signs Vitals: Temp Pulse Resp BP Pulse Ox 98.4 F 74 17 130/96 H 100 12/03/18 14:44 12/03/18 14:44 12/03/18 14:44 12/03/18 14:44 12/03/18 14:44 Interpretation: Normal Notes: PHYSICAL EXAMINATION: GENERAL: Well-appearing, well-nourished and in no acute distress. HEAD: Atraumatic, normocephalic. EYES: Pupils equal round and reactive to light, extraocular movements intact, sclera anicteric, conjunctiva are normal. ENT: nares patent, oropharynx clear without exudates. Moist mucous membranes. NECK: Normal range of motion, supple without lymphadenopathy LUNGS: Breath sounds clear to auscultation bilaterally and equal. No wheezes rales or rhonchi. HEART: Regular rate and rhythm without murmurs ABDOMEN: Soft, nontender, normoactive bowel sounds. No guarding, no rebound. No masses appreciated. EXTREMITIES: Normal range of motion, no pitting or edema. No cyanosis. NEUROLOGICAL: Face symmetric. Tongue protrudes midline. Extraocular motions intact. Pupils are 2 mm and equally reactive. Normal speech, normal gait. 5 out of 5 strength in both the distal and proximal upper and lower extremities bilaterally. Sensation is grossly intact throughout. Finger to nose testing normal. Pronator drift normal. PSYCH: Normal mood, normal affect. SKIN: Warm, Dry, normal turgor, no rashes or lesions noted. Course - Re-evaluation Re-evalutation: 12/03/18 21:13 Presentation of chest pain in an otherwise well appearing patient. Low clinical suspicion for ACS given clinical history, exam, EKG without ST elevations or depressions, and negative initial troponin. HEART score less than or equal to 3. Repeat troponin III hours after initial remains normal. PE also seems unlikely given clinical history, absence of tachycardia or dyspnea. Patient is PERC criteria negative. CXR without evidence of pneumothorax or pneumonia. No widened mediastinum. Aortic dissection also seems unlikely given history, symmetric pulses, CXR, and vitals. Patient's main concern was essential hypertension. The blood pressure medications that she has been prescribed by an urgent care at this point are not following [facility] guidelines. She is currently metoprolol and clonidine and I suspect that her spikes in blood pressure particular at night are due to clonidine rebound hypertension. I have asked the patient to discontinue clonidine, continue metoprolol and have added lisinopril. At this time will discharge with return precautions and follow-up recommendations. Verbal discharge instructions given a the bedside and opportunity for questions given. Medication warnings reviewed. Patient is in agreement with this plan and has verbalized understanding of return precautions and the need for primary care follow-up in the next 24-72 hours. - Vital Signs Vital signs: Temp Pulse Resp BP Pulse Ox 98.4 F 74 19 148/103 H 100 12/03/18 14:44 12/03/18 18:00 12/03/18 21:01 12/03/18 21:00 12/03/18 21:01 - Laboratory Result Diagrams: 12/03/18 16:06 12/03/18 16:06 Laboratory results interpreted by me: 12/03/18 16:06 Calcium 10.4 H - Diagnostic Test Radiology reviewed: Image reviewed, Reports reviewed Radiology results interpreted by me: 12/03/18 21:15 Chest x-ray: No acute infiltrate or pneumothorax - EKG Interpretation by Me Additional EKG results interpreted by me: 12/03/18 21:14 Sinus rhythm, rate 71. No ST elevations or depressions. QTC is 383. Discharge - Discharge Clinical Impression: Essential hypertension, Dizziness Chest pain Qualifiers: Chest pain type: unspecified Qualified Code(s): R07.9 - Chest pain, unspecified Condition: Good Disposition: HOME, SELF-CARE Additional Instructions: You were seen today for blood pressure that was high. This is a long-term risk factor for multiple medical problems including heart attack and stroke. However, the blood pressure in of itself will not cause you to have an acute stroke or heart attack over the course of just several days or weeks. You need to have a gradual reduction of your blood pressure back to normal levels over the next several months in conjunction with your primary care physician. Your labs and ekg are reassuring today. PLEASE DISCONTINUE CLONIDINE. Continue metoprolol as prescribed. Please begin taking lisinopril as prescribed. Return if you develop headache, weakness, numbness, chest pain, pass out, or have any other symptoms that are concerning to you. Prescriptions: Lisinopril [Prinivil 10 mg Tablet] 10 mg PO DAILY #30 tablet Referrals: NAVI ANGEL MD [ACTIVE STAFF] - Follow up as needed
[2018-12-03 21:32] VITALS: BP 148/103
--- NOTE | 2018-12-04 00:12 | EKG REPORT ---
SEVERITY:- BORDERLINE ECG - SINUS RHYTHM PROBABLE LEFT ATRIAL ABNORMALITY : Confirmed by: Didi Feliciano 04-Dec-2018 00:11:50
== END 2018-12-03 21:33 | disposition home or self-care (01) ==
LOC: ER 14:11
DX: S06.0X1A Concussion with loss of consciousness of 30 minutes or less, initial encounter (principal); M79.10 Myalgia, unspecified site; M54.2 Cervicalgia; R07.9 Chest pain, unspecified; M79.604 Pain in right leg; M79.672 Pain in left foot; V87.7XXA Person injured in collision between other specified motor vehicles (traffic), initial encounter; J45.909 Unspecified asthma, uncomplicated
CPT/HCPCS: 36415; 71046; 80053; 82550; 82553; 84484; 84703; 85025; 93005; 93010; 99284